=== PATIENT | male | born 1950 | race Caucasian/White ===

== ENCOUNTER 2018-02-13 15:18 | Inpatient (IN) | payer MEDICARE, SELFPAY ==
[2018-02-13] VITALS (13 sets, daily range): BP systolic 122–163; BP diastolic 76–102; PULSE 95–109; RESP 11–25; TEMP -12.3–36.7; O2SAT 95–97; BMI 35.7
--- NOTE | 2018-02-13 15:55 | HP.PCM_ITS ---
Problem List (1) ST elevation myocardial infarction (STEMI) of anterior wall Status: Acute (2) Elevated BP without diagnosis of hypertension Status: Acute (3) Hypertension Status: Suspected Qualifiers: Hypertension type: essential hypertension Qualified Code(s): I10 - Essential (primary) hypertension (4) Alcohol abuse Status: Chronic History of Present Illness Date of Admission: 02/13/18 Chief Complaint: Chest pain, OSH EKG w/ anterior STEMI The patient is a 67 y/o M w/ no PMHx aside Heavier EtOH Use (3-4 beers q HS) secondary likely to not being evaluated per a physician in several years who presents to the [facility] as direct admission to the Cardiac Catheterization lab from [facility] ED on 02/13/18 with history of intermittent sternal chest pressure, discomfort with no associated nausea, emesis, diaphoresis or dyspnea ongoing x ~ 1 week, worse with exertion with noted history of radiation to let side of his chest but not into his extremities or neck with recurrence on day of ED presentation while working outside rated upon OSH ED presentation 5/10 and following initial EMS and ED interventions w/ SL NG, ASA 3/10. Upon OSH ED presentation EKG w/ evidence anterior STEMI. Patient administered heparin 4,000 IV bolus, ASA 324 mg po x 1, brillinta load [address] Ruffin contacted for transfer to [place] and accepted. VS initially BP 178/113, HR 113 , 97% on 2L NC, trop initial 18. Request per Cardiology for initiation of nitroglycerin drip and IV BB administration (10 mg IV labetalol administered). Per repeat discussion w/ OSH ED, awaited transport. Left [facility] per their report 15:40. Following arrival per EMS BP improved, SBP 140 and patient noted chest discomfort rating of 0/10. He notes having family locally but cannot give specifics at this time. Past Medical History Past Medical History (Chronic Problems): Chronic Problems (Last Updated 02/13/18 @ 15:51 by Holli Maurer) Alcohol abuse (Chronic) Hypertension (Chronic) Allergies No Known Allergies Allergy (Verified 02/13/18 15:43) Home Medications: Ambulatory Orders Medication Instructions Recorded NK [NK] 02/13/18 Surgical History: no surgical history Psychiatric History: No pertinent psych hx Lives: Alone Smoking Status: Never smoker Tobacco Use: Non-smoker Alcohol: Heavy - at least 3 beers q HS Drugs: None - *Family History Maternal History Items: Hypertension Paternal History Items: Hypertension Review of Systems Constitutional: Reports: Fatigue. Denies: Chills, Fever, Weight Change HEENT: Denies: Head Aches, Sinus Congestion, Sinus Drainage Cardiovascular: Reports: Chest Pressure, Heaviness. Denies: Chest Pain, Light Headedness, Palpitations Respiratory: Denies: Cough, Shortness of Breath, Shortness of breath at rest, Shortness of breath upon exertion, Sputum production Gastrointestinal: Denies: Abdominal Pain, Nausea, Vomiting Genitourinary: Denies: Dysuria Musculoskeletal: Denies: Back Pain, Joint Pain, Joint Tenderness Skin: Denies: Rash, Wounds Neurological: Denies: Numbness, Tingling, Focal weakness Psychiatric: Denies: Anxiety, Depression, Homicidal Ideations, Suicidal Ideations Hematologic/ Lymphatic: Denies: Easy Bruising, Easy Bleeding VTE Information - Inpt Only VTE Present on Admission: No VTE Mechan Device Prophylaxis: SCD's VTE Pharm Prophylaxis ordered?: No Reason prophylaxis not ordered:: Treatment Not Indicated - Given heparin bolus, will transition to SC regimen once cleared per Cardiology in AM. Patient Problems: Active and Suspected Problems (Last Updated 02/13/18 @ 15:51 by Holli Maurer) ST elevation myocardial infarction (STEMI) of anterior wall (Acute) Elevated BP without diagnosis of hypertension (Acute) Hypertension (Suspected) Subjective: Patient laying on cardiac catheterization bed, currently denies any chest pressure, discomfort. Objective: Physical Examination: General: awake, alert, oriented x 3 and cooperative, seated upright in the EMS transport, transitioned to cardiac catheterization bed, denies any current chest discomfort. Skin: normal color, turgor, no icterus, cyanosis. HEENT: AT/NC, EOMI, PERRLA, MMM, no carotid bruit, difficult to assess JVD given durán present. Lungs: CTA bilaterally, moderate effort, mild decrease BL bases, no rales, ronchi or wheezing. Heart: Mildly tachycardic with regular rhythm; no gallop, rub audible. Abdomen: soft, appears morbidly obese, NTTP, ND, cannot assess HSM well secondary to habitus. Extremities: no cyanosis, clubbing or edema noted. Neurological: patient awake, alert, oriented x 3; cognitive function appears baseline intact; pupils equally reactive to light and accomodation; cranial nerves II-XII grossly normal, moving all extremities, strength appears intact despite acute presentation. Psychiatric: affect appears normal, no acute evidence of depressive or anxiety feelings. Assessment/Plan All Active Problems (Last Updated 02/13/18 @ 15:51 by Holli Maurer) ST elevation myocardial infarction (STEMI) of anterior wall (Acute) Elevated BP without diagnosis of hypertension (Acute) The patient is a 67 y/o M w/ no PMHx aside Heavier EtOH Use secondary likely to not being evaluated per a physician in several years who presents to the [facility] as direct admission to the Cardiac Catheterization lab from [facility] ED on 02/13/18 with history of intermittent sternal chest pressure, discomfort with no associated nausea, emesis, diaphoresis or dyspnea ongoing x ~ 1 week, worse with exertion with noted history of radiation to let side of his chest but not into his extremities or neck with recurrence on day of ED presentation while working outside rated upon OSH ED presentation 12/06. (1) Chest pain secondary to Anterior STEMI: OSH ED presentation EKG w/ evidence anterior STEMI. Patient administered heparin 4,000 IV bolus, ASA 324 mg po x 1, brillinta load [address] Ruffin contacted for transfer to [place] and accepted. VS initially BP 178/113, HR 113, 97% on 2L NC, trop initial 18. Request per Cardiology for initiation of nitroglycerin drip and IV BB administration (10 mg IV labetalol administered). Patient transitioned to the Cardiac Catheterization lab w/ Dr. Ruffin, pending results. Following if appropriate will admit to the ICU, maintain on telemetry on bedrest per protocol , cycle cardiac enzymes, obtain ECHO, obtain AM FLP and initiate on statin therapy, obtain mag level. Will await Dr. Ruffin input for brillinta, BB regimen , possibly KAYLA/ARB and consideration for continuation of NG drip. ASA, morphine. (2) Elevated BP without HTN Dx, HTN Emergency: Likely underlying HTN history, NG started prior to transfer and placed on IV BB also, will defer to Dr. Ruffin for consideration pending repeat VS with intervention with expected addition KAYLA /ARB and BB therapy. (3) EtOH Abuse: Notes routine daily 3 beer/day at least, will obtain mag and phos levels, add MVI, thiamine, folic acid and to be cautious maintain on CIWA protocol. (4) DVT prophylaxis: SCDs, recent heparin bolus, add chemoprophylaxis in AM. Code Visit Inpatient E&M: 04857 Init Hosp L3
--- NOTE | 2018-02-13 16:14 | PCM.HP.STD ---
Problem List (1) ST elevation myocardial infarction (STEMI) of anterior wall Status: Acute (2) Elevated BP without diagnosis of hypertension Status: Acute (3) Hypertension Status: Suspected Qualifiers: Hypertension type: essential hypertension Qualified Code(s): I10 - Essential (primary) hypertension (4) Alcohol abuse Status: Chronic History of Present Illness Date of Admission: 02/13/18 Chief Complaint: Chest pain, OSH EKG w/ anterior STEMI The patient is a 67 y/o M w/ no PMHx aside Heavier EtOH Use (3-4 beers q HS) secondary likely to not being evaluated per a physician in several years who presents to the [facility] as direct admission to the Cardiac Catheterization lab from [facility] ED on 02/13/18 with history of intermittent sternal chest pressure, discomfort with no associated nausea, emesis, diaphoresis or dyspnea ongoing x ~ 1 week, worse with exertion with noted history of radiation to let side of his chest but not into his extremities or neck with recurrence on day of ED presentation while working outside rated upon OSH ED presentation 5/10 and following initial EMS and ED interventions w/ SL NG, ASA 3/10. Upon OSH ED presentation EKG w/ evidence anterior STEMI. Patient administered heparin 4,000 IV bolus, ASA 324 mg po x 1, brillinta load [address] Ruffin contacted for transfer to [place] and accepted. VS initially BP 178/113, HR 113, 97% on 2L NC, trop initial 18. Request per Cardiology for initiation of nitroglycerin drip and IV BB administration (10 mg IV labetalol administered). Per repeat discussion w/ OSH ED, awaited transport. Left [facility] per their report 15:40. Following arrival per EMS BP improved, SBP 140 and patient noted chest discomfort rating of 0/10. He notes having family locally but cannot give specifics at this time. Past Medical History Past Medical History (Chronic Problems): Chronic Problems (Last Updated 02/13/18 @ 15:51 by Holli Maurer) Alcohol abuse (Chronic) Hypertension (Chronic) Allergies No Known Allergies Allergy (Verified 02/13/18 15:43) Home Medications: Ambulatory Orders Medication Instructions Recorded NK [NK] 02/13/18 Surgical History: no surgical history Psychiatric History: No pertinent psych hx Lives: Alone Smoking Status: Never smoker Tobacco Use: Non-smoker Alcohol: Heavy - at least 3 beers q HS Drugs: None - *Family History Maternal History Items: Hypertension Paternal History Items: Hypertension Review of Systems Constitutional: Reports: Fatigue. Denies: Chills, Fever, Weight Change HEENT: Denies: Head Aches, Sinus Congestion, Sinus Drainage Cardiovascular: Reports: Chest Pressure, Heaviness. Denies: Chest Pain, Light Headedness, Palpitations Respiratory: Denies: Cough, Shortness of Breath, Shortness of breath at rest, Shortness of breath upon exertion, Sputum production Gastrointestinal: Denies: Abdominal Pain, Nausea, Vomiting Genitourinary: Denies: Dysuria Musculoskeletal: Denies: Back Pain, Joint Pain, Joint Tenderness Skin: Denies: Rash, Wounds Neurological: Denies: Numbness, Tingling, Focal weakness Psychiatric: Denies: Anxiety, Depression, Homicidal Ideations, Suicidal Ideations Hematologic/ Lymphatic: Denies: Easy Bruising, Easy Bleeding VTE Information - Inpt Only VTE Present on Admission: No VTE Mechan Device Prophylaxis: SCD's VTE Pharm Prophylaxis ordered?: No Reason prophylaxis not ordered:: Treatment Not Indicated - Given heparin bolus, will transition to SC regimen once cleared per Cardiology in AM. Patient Problems: Active and Suspected Problems (Last Updated 02/13/18 @ 15:51 by Holli Maurer) ST elevation myocardial infarction (STEMI) of anterior wall (Acute) Elevated BP without diagnosis of hypertension (Acute) Hypertension (Suspected) Subjective: Patient laying on cardiac catheterization bed, currently denies any chest pressure, discomfort. Objective: Physical Examination: General: awake, alert, oriented x 3 and cooperative, seated upright in the EMS transport, transitioned to cardiac catheterization bed, denies any current chest discomfort. Skin: normal color, turgor, no icterus, cyanosis. HEENT: AT/NC, EOMI, PERRLA, MMM, no carotid bruit, difficult to assess JVD given durán present. Lungs: CTA bilaterally, moderate effort, mild decrease BL bases, no rales, ronchi or wheezing. Heart: Mildly tachycardic with regular rhythm; no gallop, rub audible. Abdomen: soft, appears morbidly obese, NTTP, ND, cannot assess HSM well secondary to habitus. Extremities: no cyanosis, clubbing or edema noted. Neurological: patient awake, alert, oriented x 3; cognitive function appears baseline intact; pupils equally reactive to light and accomodation; cranial nerves II-XII grossly normal, moving all extremities, strength appears intact despite acute presentation. Psychiatric: affect appears normal, no acute evidence of depressive or anxiety feelings. Assessment/Plan All Active Problems (Last Updated 02/13/18 @ 15:51 by Holli Maurer) ST elevation myocardial infarction (STEMI) of anterior wall (Acute) Elevated BP without diagnosis of hypertension (Acute) The patient is a 67 y/o M w/ no PMHx aside Heavier EtOH Use secondary likely to not being evaluated per a physician in several years who presents to the [facility] as direct admission to the Cardiac Catheterization lab from [facility] ED on 02/13/18 with history of intermittent sternal chest pressure, discomfort with no associated nausea, emesis, diaphoresis or dyspnea ongoing x ~ 1 week, worse with exertion with noted history of radiation to let side of his chest but not into his extremities or neck with recurrence on day of ED presentation while working outside rated upon OSH ED presentation 12/06. (1) Chest pain secondary to Anterior STEMI: OSH ED presentation EKG w/ evidence anterior STEMI. Patient administered heparin 4,000 IV bolus, ASA 324 mg po x 1, brillinta load [address] Ruffin contacted for transfer to [place] and accepted. VS initially BP 178/113, HR 113, 97% on 2L NC, trop initial 18. Request per Cardiology for initiation of nitroglycerin drip and IV BB administration (10 mg IV labetalol administered). Patient transitioned to the Cardiac Catheterization lab w/ Dr. Ruffin, pending results. Following if appropriate will admit to the ICU, maintain on telemetry on bedrest per protocol, cycle cardiac enzymes, obtain ECHO, obtain AM FLP and initiate on statin therapy, obtain mag level. Will await Dr. Ruffin input for brillinta, BB regimen, possibly KAYLA/ARB and consideration for continuation of NG drip. ASA, morphine. (2) Elevated BP without HTN Dx, HTN Emergency: Likely underlying HTN history, NG started prior to transfer and placed on IV BB also, will defer to Dr. Ruffin for consideration pending repeat VS with intervention with expected addition KAYLA/ARB and BB therapy. (3) EtOH Abuse: Notes routine daily 3 beer/day at least, will obtain mag and phos levels, add MVI, thiamine, folic acid and to be cautious maintain on CIWA protocol. (4) DVT prophylaxis: SCDs, recent heparin bolus, add chemoprophylaxis in AM. Code Visit Inpatient E&M: 42030 Init Hosp L3
[2018-02-13 17:27] LABS: International Normalized Ratio 1.3; Prothrombin Time (Protime)PT. 16.1 SECONDS (11.7-14.9)
--- NOTE | 2018-02-13 17:33 | CL.I_ITS ---
Patient Name: CLARIBEL CALABRESE Study Date: 02/13/2018 Performing: Regino Ruffin MD Ht: 80 inches 203.2 cm : 1950 Wt: 240 lbs 108.86 kg Age: 67 Gender: male BSA: 2.48 PROCEDURE(S) PERFORMED [id number], MARY AND/OR PTCA, ARTERY OR GRAFT, SINGLE VESSEL CLINICAL PROFILE AND CO-MORBIDITIES Patient presents with STEMI for emergent cardiac cath. Indications: ACS > 24 hrs, Worsening Angina, Suspected CAD Heart Failure: None Stress/Imaging Stress/Image Study Performed: No Angina Classification Anginal Classification w/in 2 Weeks: CCS IV CAD Presentations: STEMI. 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 Successful PTCA/MARY of the of mid LAD with a 2.5 x 38 Promus Synergy, followed immediately upstream w ith a 3.0 x 24 Promus Synergy, post dilated with a 3.0 x 12 NC balloon; 99%-->0%, no dissection. Successful PCI with PTCA to the ostial DIAG with a 2.0 x 12 balloon; 75%-->40%, no dissection. Unsuccessful wire crossing of OM#2, which appears to be a REPAIRER HAIRSPRING with robust L to L collaterals. RECOMMENDATIONS Highly recommend quitting all tobacco products Follow up with primary book packer Risk factor modification ASA Indefinitley Plavix for at least 12 months Routine post interventional care Refer for Outpatient Cardiac Rehab Manual sheath removal per protocol Successful Mynx closure of RFA. Follow up with Dr. Ruffin DESCRIPTION OF PROCEDURE The patient arrived to the procedure lab. The risks and benefits of the procedure as well as a full d escription of our services here and lack of surgical backup were fully explained to the patient and/o r their significant other prior to the catheterization. The Timeout was completed, verifying the noemy ect patient and procedure. The patient's procedural site was prepped and draped in the usual fashion. Local anesthetic was given subcutaneously to right groin region with Lidocaine 2%. Using a modified Seldinger technique, arterial access was obtained via the right femoral artery, a 6Fr sheath was inse rted.. Simultaneous pressures were then recorded. Right Coronary Artery selective angiography was th en performed in multiple views using a 4 Fr. 3DRC catheter. Left Coronary Artery selective angiograph y was performed in multiple views using a 6 Fr. EBU 3.75. Left Ventriculography was performed in ROJO projection using a 4 Fr. Pigtail catheter. LV to AO pullback pressures were then recordedThe images w ere reviewed and options discussed. A decision was then made to proceed with an Intervention, IVUS or other adjunct procedure. ebu 3.75 Guide catheter was inserted and engaged into the LCA. runthrough wire Guide wire was advance d to the LAD. 2.0 x 12 Emerge Balloon catheter was inserted. Balloon catheter was advanced across les ion in the LAD, mid. PTCA balloon inflated at 6 atms for 7 secs. PTCA balloon inflated at 6 atms for 8 secs. PTCA balloon inflated at 6 atms for 5 secs. Angiogram performed post balloon dilatation. PTCA balloon inflated at 6 atms for 7 secs. PTCA balloon inflated at 6 atms for 5 secs. PTCA balloon infl ated at 6 atms for 5 secs. Angiogram performed post balloon dilatation. [employer] [place] Guide wire was inserted as a marisabel wire to the diag Balloon catheter was reinserted Balloon catheter was advanced ac ross lesion in the first diagonal, ostial. PTCA balloon inflated at 6 atms for 8 secs. 2.5 x 38 Syner gy Drug Eluting stent was inserted. Drug Eluting stent was advanced across the lesion in the LAD, mid . Angiogram performed pre stent deployment. Angiogram performed post stent deployment. 3.0 x 20 Syner gy Drug Eluting stent was inserted. Angiogram performed pre stent deployment. 3.0 x 24 Drug Eluting s tent was inserted. Angiogram performed pre stent deployment. Drug Eluting stent was advanced across t he lesion in the LAD, mid. Angiogram performed post stent deployment. 3.0 x 12 NC Emerge Balloon cath eter was inserted. Balloon catheter was advanced across lesion in the LAD, mid. Run through Guide wir e was repositioned to the 1st Diagonal, BMW placed in the mid LAD 2.0 x 12 Emerge Balloon catheter wa s reinserted Balloon catheter was advanced across lesion in the first diagonal, ostial. PTCA balloon inflated at 6 atms for 36 secs. Angiogram performed post balloon dilatation. The arterial sheath wa s pulled and a Mynx closure device was deployed for hemostasis CORONARY ANGIOGRAPHY DOMINANCE: Right Dominant LEFT HEART ASSESSMENT Left Ventricular Ejection Fraction: by LV Gram 45-50 % Depressed Left Ventricular systolic function Elevated Left Ventricular End Diastolic Pressure Anterior Hypokinesis - Moderate LEFT MAIN: Angiographically normal LEFT ANTERIOR DECENDING ARTERY: MID LAD: 99 % Stenosis DIAGONAL 1: Ostial - 75 % Stenosis CIRCUMFLEX ARTERY: OM 1: Proximal - Mild luminal irregularities less than 30% OM 2: Proximal - is occluded RIGHT CORONARY ARTERY: PROX RCA: Mild luminal irregularities less than 30% RT PDA: Proximal - Mild luminal irregularities less than 30% COLLATERAL FLOW: Collateral flow from Right to Left Collateral flow from Left to Left INTERVENTION INFORMATION LESION SITE: LAD (Mid) Lesion Complexity: High/C, lesion at bifurcation: Yes, thrombus present: Yes, lesion length: 62 mm, c ulprit lesion: Yes Pre Stenosis: 99 % Pre intervention ZACHARY flow: 2 PROCEDURE: Drug Eluting Stent with pre and post dilatation Post Stenosis: 0 % Post intervention ZACHARY flow: 3 Lesion Devices: Terumo .014 Runthrough Extra Floppy 180cm straight [employer] EMERGE MR 2.00x12 BALLOON [employer] Synergy MR MARY 2.50x38 [employer] Synergy MR MARY 3.00x24 [employer] NC EMERGE MR 3.00x12 BALLOON LESION SITE: 1st Diagonal (Ostial) Lesion Complexity: Non-High/Non-C, lesion at bifurcation: Yes, lesion length: 8 mm, culprit lesion: N o Pre Stenosis: 75 % Pre intervention ZACHARY flow: 3 PROCEDURE: Balloon Angioplasty Post Stenosis: 40 % Post intervention ZACHARY flow: 3 Lesion Devices: [employer] EMERGE MR 2.00x12 BALLOON [place] .014 [employer] [place] Straight 190cm COMPLICATIONS No Complications PROCEDURE MEDICATIONS Oxygen: 2 L/min via nasal cannula Heparin 6000 unit(s) IV 02/13/2018 16:17:42 Nitro 200 mcg IC 02/13/2018 16:24:24 Nitro 200 mcg IC 02/13/2018 16:24:24 SUMMARY OF HEMODYNAMIC DATA Time AIR REST ECG 16:06:31 AO 141/89 (115) SA 16:15:21 LV 161/-16, 18 17:02:37 LV 158/-15, 18 17:02:44 LVp 163/-16, 19 17:02:50 AO 141/80 (105) 17:02:55 Signed By Regino Ruffin MD On 02/13/2018 17:32:25 Regino Ruffin MD
[2018-02-13 17:38] LABS: Anion Gap 9 (5-15); BUN 8 mg/dL (7-18); BUN/Creat Ratio 12.4 RATIO (10-20); Calcium,Total 7.8 mg/dL (8.5-10.1); Chloride 97 mmol/L (98-107); Creatinine, Serum 0.65 mg/dL (0.70-1.30); EST Glomerular Filtration Rate 131 mL/min (>60); Est Glom Filt Rate - Afr Amer 159 mL/min (>60); Glucose 157 mg/dL (74-106); Magnesium 1.8 mg/dL (1.6-2.6); Potassium 3.6 mmol/L (3.5-5.1); Sodium Level 129 mmol/L (136-145)
[2018-02-13 17:40] LABS: ACT Activated Clotting Time 180 sec (74-137)
[2018-02-13 17:40] LABS: ACT Activated Clotting Time 136 sec (74-137)
--- NOTE | 2018-02-13 17:43 | EKG12_ITS ---
Test Reason : POST STEMI Blood Pressure : / mmHG Vent. Rate : 096 BPM Atrial Rate : 096 BPM P-R Int : 166 ms QRS Dur : 084 ms QT Int : 378 ms P-R-T Axes : 048 038 -22 degrees QTc Int : 477 ms Normal sinus rhythm ST & T wave abnormality, consider inferior ischemia ST & T wave abnormality, consider anterolateral ischemia Prolonged QT Abnormal ECG No previous ECGs available Confirmed by JUAN LEE ([id number]), movie editor ARCHIE OWEN ([id number]) on 02/19/2018 2:13:12 PM Referred By: ROSA Confirmed By:JUAN LEE
[2018-02-13 17:53] LABS: Partial Thromboplast Time 150.6 Seconds (24.1-36.2)
[2018-02-13 18:16] LABS: Phosphorus 2.8 mg/dL (2.5-4.9)
[2018-02-13 19:55] LABS: M R Staph aureus DNA By PCR Negative (Negative); Probe Check PASS; Specimen Processing Control PASS
[2018-02-13] MEDS: TICAGRELOR 90 MG TABLET PO (21:14)
[2018-02-13] MEDS: 0.9% Normal Saline 1,000 ML 150 ML IV (21:18)
[2018-02-13] MEDS: Nitroglycerin Infusion 250 ML 3 MG IV (21:22)
--- NOTE | 2018-02-13 21:29 | NURSING ---
Extensive counseling on medications by this RN. Pt refusing to take all medications other than brilinta.
[2018-02-13 21:30] LABS: Bedside Glucose 217 mg/dL (70-110)
[2018-02-14] VITALS (26 sets, daily range): BP systolic 100–149; BP diastolic 60–89; PULSE 84–111; RESP 12–28; TEMP 36.6–37.1; O2SAT 92–98
[2018-02-14] MEDS: 0.9% Normal Saline 1,000 ML 100 ML IV (00:55)
[2018-02-14 04:21] LABS: Hematocrit 40.8 % (40-54); Hemoglobin 14.1 g/dl (13.0-16.5); Mean Corp Hgb Conc 34.6 g/gl (32-36); Mean Corpuscular Hgb 31.6 pg (27.0-32.0); Mean Corpuscular Volume 91.5 fL (80-94); Mean Platelet Vol. 9.1 fl (6.2-12.0); Platelet Count 240 K/mm3 (150-450); RBC Distribution Width CV 12.4 % (11.6-14.6); RBC Distribution Width SD 40.8 fl (35.1-43.9); Red Blood Count 4.46 M/mm3 (4.6-6.2); Scan Indicated on CBC? Y/N NO; White Blood Count 11.4 K/mm3 (4.4-11.0)
[2018-02-14 04:40] LABS: Anion Gap 9 (5-15); BUN 8 mg/dL (7-18); BUN/Creat Ratio 10.1 RATIO (10-20); Chloride 101 mmol/L (98-107); Cholesterol 160 mg/dL (200); Creatinine, Serum 0.79 mg/dL (0.70-1.30); EST Glomerular Filtration Rate 104 mL/min (>60); Est Glom Filt Rate - Afr Amer 126 mL/min (>60); Estimated Creatinine Clearance 75.03 ml/min; Glucose 167 mg/dL (74-106); High Density Lipoprotein 37 mg/dL; Potassium 3.5 mmol/L (3.5-5.1); Sodium Level 136 mmol/L (136-145); Triglycerides 112 mg/dL; Very Low Density Lipoprotein 22 mg/dL (5-40)
--- NOTE | 2018-02-14 05:55 | ECHOD_ITS ---
Reason For Study: Chest pain Procedure This was a 2D Doppler, Color Flow transthoracic echocardiogram. Exam performed portable in ICU/CCU. Left Ventricle Moderate concentric left ventricular hypertrophy. The estimated ejection fraction is 45 %. Stage 1 diastolic dysfunction. Mid-Anterior : Severely Hypokinetic. Mid-anteroseptal : Severely Hypokinetic. Right Ventricle Normal size and thickness. Normal systolic function. Atria Normal left atrium. Normal right atrium. Normal atrial septum. Mitral Valve The mitral valve is structurally normal. No prolapse or stenosis seen. Tricuspid Valve Normal tricuspid valve. Unable to estimate RV systolic pressure due to inadequate jet, pulmonary artery pressure probably normal. Aortic Valve Trisinus/trileaflet aortic valve. Mild focal aortic valve thickening. Pulmonic Valve Normal pulmonic valve. Great Vessels Normal aortic root. Normal arch. Normal inferior vena cava. Inferior vena cava collapse with sniff. Pericardium/Pleural No pericardial effusion. MMode/2D Measurements & Calculations LVIDd: 4.0 cm IVSd: 1.6 cm Ao root diam: 3.3 cm LVIDs: 2.2 cm LVPWd: 1.5 cm LA dimension: 3.6 cm FS: 44.8 % LAV(MOD-bp): 57.1 ml LA A4 area: 17.7 cm2 RA A4 area: 11.3 cm2 LAV(MOD-bp) Indexed: 25.0 ml/m2 LAV(MOD-sp2): 53.8 ml LAV(MOD-sp4): 56.0 ml Doppler Measurements & Calculations MV E max mahesh: 73.6 cm/sec Lat Peak E' Mahesh: 7.1 cm/sec Med Peak E' Mahesh: 6.5 cm/sec MV A max mahesh: 106.7 cm/sec E/E' lat: 10.4 E/E' med: 11.3 MV E/A: 0.69 Ao V2 max: 159.1 cm/sec LV V1 max: 120.2 cm/sec PA V2 max: 124.0 cm/sec Ao max P.1 mmHg LV V1 max P.8 mmHg Interpretation Summary Moderate concentric left ventricular hypertrophy. The estimated ejection fraction is 45 %. Stage 1 diastolic dysfunction. Mid-Anterior : Severely Hypokinetic. Mid-anteroseptal : Severely Hypokinetic. Unable to estimate RV systolic pressure due to inadequate jet, pulmonary artery pressure probably normal. There is no comparison study available. Ordering Physician: Holli Maurer Performed By: Rosa M Piper RDCS
--- NOTE | 2018-02-14 06:53 | PN_ITS ---
Patient Problems: Active and Suspected Problems (Last Updated 02/13/18 @ 15:51 by Holli Maurer) ST elevation myocardial infarction (STEMI) of anterior wall (Acute) Elevated BP without diagnosis of hypertension (Acute) Hypertension (Suspected) Subjective: Patient with no acute events overnight and since intervention per report by nurse and patient; however, patient this morning very reticent to take oral medications and therefore had continued on the nitroglycerin drip to achieve appropriate blood pressure control. Following extremely lengthy discussions throughout the day patient eventually started on his oral medications and was transitioned off the nitroglycerin drip. Reviewed all labs which included those consistent with diabetes mellitus type 2 and discussed plan of care with patient and encouraged consideration of oral medication start upon discharge. Patient denies any further chest discomfort since presentation and states as though he is feeling well and eager for discharge to home. Patient denies fevers, chills, nausea, emesis, abdominal pain, chest pain or dyspnea. Objective: Physical Examination: General: awake, alert, oriented x 3 and cooperative, seated upright in ICU bedside chair, NAD. Skin: normal color, turgor, no icterus, cyanosis. HEENT: AT/NC, EOMI, PERRLA, MMM. Lungs: CTA bilaterally, moderate effort, mild decrease BL bases, no rales, ronchi or wheezing. Heart: Regular rate with regular rhythm; no gallop, rub audible. Abdomen: soft, obese, NTTP, ND, normal BS. Extremities: no cyanosis, clubbing or edema. Neurological: patient awake, alert, oriented x 3; cognitive function appears baseline intact; pupils equally reactive to light and accomodation; cranial nerves II-XII grossly normal, moving all extremities, strength intact. Psychiatric: affect appears normal, no acute evidence of depressive or anxiety feelings. Vitals/I&O's: Vital Signs Temp Pulse Resp BP Pulse Ox 98.8 F 101 H 23 H 131/73 H 95 02/14/18 05:00 02/14/18 06:00 02/14/18 06:00 02/14/18 06:00 02/14/18 06:00 Oxygen Delivery Method Room Air Weight: 251 lb 5.231 oz Body Mass Index (BMI) 35.7 Intake and Output for Last 24 Hours 02/12/18 02/13/18 02/14/18 23:59 23:59 23:59 Intake Total 2377.9 / 2377.9 Output Total 750 / 750 1000 / 1000 Balance -750 / -750 1377.9 / 1377.9 Laboratory Results 02/13/18 16:15: Activated Clotting Time 136 02/13/18 17:04: Activated Clotting Time 180 H 02/13/18 17:09: Sodium 129 L, Potassium 3.6, Chloride 97 L, Carbon Dioxide 23.0 , Anion Gap 9, BUN 8, Creatinine 0.65 L, Est GFR (MDRD) Af Amer 159, Est GFR ( MDRD) Non-Af 131, BUN/Creatinine Ratio 12.4, Glucose 157 H, Calcium 7.8 L, Magnesium 1.8 02/13/18 17:09: PT 16.1 H, INR 1.3, APTT 150.6 H* 02/13/18 17:09: Phosphorus 2.8 02/13/18 17:09: Troponin I 63.200 H* 02/13/18 18:00: MRSA (PCR) Negative 02/13/18 20:00: Troponin I 149.000 H* 02/13/18 21:25: POC Glucose 217 H 02/13/18 23:00: Troponin I 82.800 H* 02/14/18 04:10: WBC 11.4 H, RBC 4.46 L, Hgb 14.1, Hct 40.8, MCV 91.5, MCH 31.6, MCHC 34.6, RDW 12.4, RDW Differential 40.8, Plt Count 240, MPV 9.1 02/14/18 04:10: Sodium 136, Potassium 3.5, Chloride 101, Carbon Dioxide 26.0, Anion Gap 9, BUN 8, Creatinine 0.79, Estim Creat Clear Calc 75.03, Est GFR (MDRD ) Af Amer 126, Est GFR (MDRD) Non-Af 104, BUN/Creatinine Ratio 10.1, Glucose 167 H, Calcium 8.0 L, Triglycerides 112, Cholesterol 160, LDL Cholesterol 101, VLDL Cholesterol 22, HDL Cholesterol 37 L Current Medications Acetaminophen (Tylenol) 650 mg PO Q6H PRN PRN PRN Reason: Mild Pain (0-2/10) Hydrocodone Bitart/Acetaminophen ([place] 5mg-325mg) 1 - 2 tablet PO Q6H PRN PRN PRN Reason: Moderate-severe pain Al Hydroxide/Mg Hydroxide (Mylanta Ii) 30 ml PO Q6H PRN PRN PRN Reason: Gastric burning Aspirin (Aspirin, Baby) 81 mg PO DAILY@0800 [facility] Atorvastatin Calcium (Lipitor) 80 mg PO QHS [facility] Last Admin: 02/13/18 21:14 Dose: Not Given Atropine Sulfate () 0.5 mg IV UD PRN PRN Reason: HR <50 bpm Carvedilol (Coreg) 3.125 mg PO BID [facility] Last Admin: 02/13/18 21:20 Dose: Not Given Famotidine (Pepcid) 20 mg PO BID [facility] Last Admin: 02/13/18 21:14 Dose: Not Given Folic Acid (Folic Acid) 1 mg PO DAILY@0800 [facility] Stop: 02/15/18 08:01 Last Admin: 02/13/18 21:17 Dose: Not Given Hydralazine HCl (Apresoline Iv) 10 mg IV Q4H PRN PRN PRN Reason: SBP > 160 Sodium Chloride () 1,000 mls @ 100 mls/hr IV .Q10H [facility] Last Admin: 02/14/18 00:55 Dose: 100 mls/hr Nitroglycerin/Dextrose () 250 mls @ 3 mls/hr IV .[id number] [facility] PRN Reason: 5 MCG/MIN Last Admin: 02/13/18 21:22 Dose: 3 mls/hr Sodium Chloride () 250 mls @ 15 mls/hr IV .[id number] PRN PRN Reason: SALINE FLUSH Sodium Chloride () 250 mls @ 15 mls/hr IV .[id number] PRN PRN Reason: SALINE FLUSH Lisinopril (Zestril) 5 mg PO DAILY [facility] Lorazepam (Ativan) 2 mg PO Q2H PRN PRN; Protocol PRN Reason: CIWA score > 8 but <15 Lorazepam (Ativan) 2 mg PO UD PRN; Protocol PRN Reason: CIWA score >/=15. Lorazepam (Ativan) 2 mg IV Q2H PRN PRN; Protocol PRN Reason: CIWA score > 8 but <15 Lorazepam (Ativan) 2 mg IV UD PRN; Protocol PRN Reason: CIWA score >/=15. Lorazepam (Ativan) 1 mg PO Q6H PRN PRN PRN Reason: BACK SPASMS/ANXIETY Magnesium Hydroxide (Milk Of Magnesia) 30 ml PO DAILY PRN PRN PRN Reason: Constipation Morphine Sulfate () 1 - 2 mg IV Q4H PRN PRN PRN Reason: PAIN Multivitamins/Minerals (Multivitamin With Minerals) 1 tablet PO DAILY[facility] BRANSON Last Admin: 02/13/18 21:17 Dose: Not Given Ondansetron HCl (Zofran) 4 mg IV Q8H PRN PRN PRN Reason: NAUSEA Promethazine HCl (Phenergan) 12.5 mg IV Q6H PRN PRN PRN Reason: NAUSEA/VOMITING Sodium Chloride () 500 ml IV BOLUS PRN PRN Reason: VASO-VAGAL PROTOCOL Sodium Chloride () 5 - 30 ml IV UD PRN PRN Reason: SALINE FLUSH Thiamine HCl (Vitamin B1) 100 mg PO BIDCOX BRANSON Stop: 02/16/18 08:01 Last Admin: 02/13/18 21:17 Dose: Not Given Ticagrelor (Brilinta) 90 mg PO BID [facility] Last Admin: 02/13/18 21:14 Dose: 90 mg Medical Necessity - Tobacco Use Smoking Status: Former smoker Tobacco Use: Non-smoker Assessment/Plan All Active Problems (Last Updated 02/13/18 @ 15:51 by Holli Maurer) ST elevation myocardial infarction (STEMI) of anterior wall (Acute) Elevated BP without diagnosis of hypertension (Acute) The patient is a 67 y/o M w/ no PMHx aside Heavier EtOH Use secondary likely to not being evaluated per a physician in several years who presents to the [facility] as direct admission to the Cardiac Catheterization lab from [facility] ED on 02/13/18 with history of intermittent sternal chest pressure, discomfort with no associated nausea, emesis, diaphoresis or dyspnea ongoing x ~ 1 week, worse with exertion with noted history of radiation to let side of his chest but not into his extremities or neck with recurrence on day of ED presentation while working outside rated upon OSH ED presentation 12/06. (1) Chest pain secondary to Anterior STEMI w/ REduced EF, Diastolic Dysfunction : OSH ED presentation EKG w/ evidence anterior STEMI. Patient administered heparin 4,000 IV bolus, ASA 324 mg po x 1, brillinta load [address] Ruffin contacted for transfer to [place] and accepted. VS initially BP 178/113, HR 113, 97% on 2L NC, trop initial 18. Request per Cardiology for initiation of nitroglycerin drip and IV BB administration (10 mg IV labetalol administered). Patient transitioned to the Cardiac Catheterization lab w/ Dr. 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 Admitted following to the ICU, maintained on telemetry, serial enzyme trend with 18 (OSH ED)-->63.2 -->149-->82.8, serial EKG as needed, NG drip eventually discontinued once patient was willing to take the new oral blood pressure regimen, ECHO with moderate concentric LVH, EF 45%, stage I diastolic dysfunction, mid-anterior severely hypokinetic, mid-anteroseptal severely hypokinetic, unable to estimate RVSP secondary to inadequate jet but suspect normal, AM FLP w/ TG 112, TChol 160 , LDL 101, VLDL 22, HDL 37. Initiated and maintained on asa, brillinta, high dose statin, coreg, lisinopril. ASA, NG, morphine. (2) Elevated BP without HTN Dx, HTN Emergency: Likely underlying HTN history, NG started prior to transfer and placed on IV BB also, improved following interventions but declined initially oral medications therefore NG continued until this AM with eventual willingness to transition to coreg, lisinopril, PRN hydralazine. (3) EtOH Abuse: Notes routine daily 3 beer/day at least, will obtain mag and phos levels, add MVI, thiamine, folic acid and to be cautious maintain on CIWA protocol. (4) New Diagnosis Diabetes Mellitus type II w/ Hyperglycemia: Admission glucose levels remain elevated, HgbA1c 8%, maintained on ADA, ISS, nutrition consulted for education and teaching. Discussed new diagnosis and diet at length including meal options, need for cautious with wounds/cuts as well as several other lifestyle change improvements to undertake. Discussed oral medication with planned metformin upon discharge once timeline appropriate given recent contrast; however, patient reticent to take any more medication. Willing to take rx and make lifestyle/diet changes but likely not take any regimen. (5) Obesity: Weight loss and lifestyle changes encouraged, nutrition consulted for education and teaching, cardiac rehabilitation consultation also performed. (6) DVT prophylaxis: SCDs, lovenox. PROLONGED CARE TIME: Patient initially extremely reticent to take any oral medications. Discussions undertaken in the AM and through the day with ongoing education regarding new Dx CAD, HTN, DM II. Discussed with patient and CM/SW medication needs with discussion with [facility] as [facility]. These discussions and ongoing interventions w/ CM[facility]SW with [facility] required 75 addition minutes above the initial daily progress timeline. Code Visit Inpatient E&M: 82463 Subs Hosp L3 Procedures: 60572 Prolonged InPt Service; first hour
[2018-02-14 07:01] LABS: Bedside Glucose 154 mg/dL (70-110)
--- NOTE | 2018-02-14 08:51 | PN.CARD_ITS ---
Subjectve: Patient doing well this morning, no further angina. Telemetry showed normal sinus rhythm, no ventricular arrhythmias. EKG shows normal sinus rhythm with resolving anterior ST segment elevation. Peak troponin thus far is 82. Right groin is clean/dry/intact without evidence of thrills, hematoma or bruit. Hemoglobin and creatinine have remained within nominal limits. Patient refused to take his medications this morning except for his aspirin and Brilinta. Objective: Vital Signs Temp Pulse Resp BP Pulse Ox 98.8 F 109 H 21 H 123/82 H 95 02/14/18 05:00 02/14/18 08:00 02/14/18 08:00 02/14/18 07:33 02/14/18 08:00 Oxygen Delivery Method Room Air Weight: 251 lb 5.231 oz Body Mass Index (BMI) 35.7 Intake and Output for Last 24 Hours 02/12/18 02/13/18 02/14/18 23:59 23:59 23:59 Intake Total 2377.9 / 2377.9 Output Total 750 / 750 1000 / 1000 Balance -750 / -750 1377.9 / 1377.9 General: Awake, Alert, Oriented x 3 HEENT: PERRL, EOMI, Sclera Non Icteric Neck: Supple, Good ROM, No Lymph Node Enlargement Lungs: Clear to auscultation Cardiovascular: Regular Rhythm, Normal S1, Normal S2, No Murmurs, No Rubs, No Gallops Vascular: No Carotid Bruits, Normal Femoral Pulses, Normal Radial Pulses, Normal Dorsalis Pedal Pulse, Normal Posterior Tibial Pulses Abdomen: Bowel Sounds Present, Soft, Non Tender, No HSM, No Organomegaly Extremities: No Cyanosis, No Clubbing, No edema Neurological: No Focal Motor or Sensory Deficit 02/13/18 17:09: Sodium 129 L, Potassium 3.6, Chloride 97 L, Carbon Dioxide 23.0 , Anion Gap 9, BUN 8, Creatinine 0.65 L, Est GFR (MDRD) Af Amer 159, Est GFR ( MDRD) Non-Af 131, BUN/Creatinine Ratio 12.4, Glucose 157 H, Calcium 7.8 L, Magnesium 1.8 02/13/18 17:09: PT 16.1 H, INR 1.3, APTT 150.6 H* 02/13/18 17:09: Phosphorus 2.8 02/13/18 17:09: Troponin I 63.200 H* 02/13/18 20:00: Troponin I 149.000 H* 02/13/18 23:00: Troponin I 82.800 H* 02/14/18 04:10: WBC 11.4 H, RBC 4.46 L, Hgb 14.1, Hct 40.8, MCV 91.5, MCH 31.6, MCHC 34.6, RDW 12.4, RDW Differential 40.8, Plt Count 240, MPV 9.1 02/14/18 04:10: Sodium 136, Potassium 3.5, Chloride 101, Carbon Dioxide 26.0, Anion Gap 9, BUN 8, Creatinine 0.79, Est GFR (MDRD) Af Amer 126, Est GFR (MDRD) Non-Af 104, BUN/Creatinine Ratio 10.1, Glucose 167 H, Calcium 8.0 L, Triglycerides 112, Cholesterol 160, LDL Cholesterol 101, VLDL Cholesterol 22, HDL Cholesterol 37 L 02/14/18 04:10: Hemoglobin A1c 8.0 H Rhythm: EKG: ECHO: Pending Stress Test: Cardiac Cath: PCI: CT Surgery: Holter monitor: EPS: PPM: CXR: Chest CT Scan: Medical Necessity - Tobacco Use Smoking Status: Former smoker Tobacco Use: Non-smoker Assessment/Plan 1. Coronary artery disease: The patient presented yesterday with acute anterior wall ST elevation myocardial infarction requiring emergent catheterization and 2 drug-eluting stents to the LAD as well as balloon angioplasty to the ostium of the diagonal branch. Patient has occluded obtuse marginal #2 with adequate left to left collaterals. No additional angioplasty or evaluation is needed at this time. Recommend the patient continue baby aspirin, Brilinta, and that we wean his nitroglycerin drip off to facilitate discharge home in the next 24-48 hours. I had a long and thorough discussion with the patient regarding his antihypertensive and what appear to be new diabetic medications as he is a newly diagnosed diabetic. Although the patient is reluctant to proceed with medications I explained to him the enormous benefits and minimal risk that they forward to patients with cardiovascular disease. The patient appears to have reluctantly agreed to take his medications. The patient will undergo an echocardiogram today to assess his LV function. We will repeat this in 4 months time after cardiac rehab is been completed. 2. Diabetes: We will defer to hospitalist assistance. Many thanks to Dr. Holli Maurer for her assistance both yesterday and with the patient's care in the hospital. 3. Hyperlipidemia: His LDL is 101 his HDL is 37. Continue Lipitor therapy. Will repeat lipid profile in 6 weeks time. 4. Thank you very much for the opportunity to participate in the cardiac care of your patient. Code Visit Inpatient E&M: 52786 Subs Hosp L2
[2018-02-14] MEDS: Aspirin 81 MG TAB.CHEW PO (09:16)
[2018-02-14] MEDS: TICAGRELOR 90 MG TABLET PO ×2 (09:16→21:06)
[2018-02-14] MEDS: Carvedilol 3.125 MG TABLET PO ×2 (09:16→21:06)
[2018-02-14] MEDS: Lisinopril 5 MG Tablet PO (09:17)
--- NOTE | 2018-02-14 11:08 | CRPHASE1 ---
Patient Data/Charges Phase II Referral:: [facility] Start Phase II:: FOLLOWING CARDIOLOGY OFFICE VISIT Risk Factors/Lifestyle Smoking Status: Former smoker Hx Hypertension: Yes Hx Diabetes Mellitus Type 1: No Hx Metabolic Disorders: Yes Hx Dyslipidemia: Yes Hx Obesity: Yes Height: 5 ft 10 in - BMI 36.1 Stress: Home/Family ETOH: No Substance Abuse: No Risk Factor for Sedentary Lifestyle: Moderate Risk Family History: Heart Disease Laboratory Values: Cardiac Rehab Phase I Labs Hemoglobin A1c 8.0 % (4.2-6.3) H 02/14/18 04:10 Triglycerides 112 mg/dL (-199) 02/14/18 04:10 Cholesterol 160 mg/dL (200) 02/14/18 04:10 LDL Cholesterol 101 mg/dL (0-130) 02/14/18 04:10 HDL Cholesterol 37 mg/dL (40-) L 02/14/18 04:10 Phase I Education Given On:: [place], Nutrition, Antiplatelet medication Issues Affecting Care:: None Knowledge of Condition:: Yes Learning Preferences: Verbal, Written Hospital Course Presenting Symptoms:: STEMI Medical/Surgical History [place]:: Yes - STEMI CAD:: No COPD:: No Diabetes:: No Hypertension:: Yes Dyslipidemia:: Yes Discharge/Home/Social Eval Discharge Disposition: Home
--- NOTE | 2018-02-14 11:11 | CRPHASE1_ITS ---
Patient Data/Charges Phase II Referral:: [facility] Start Phase II:: FOLLOWING CARDIOLOGY OFFICE VISIT Risk Factors/Lifestyle Smoking Status: Former smoker Hx Hypertension: Yes Hx Diabetes Mellitus Type 1: No Hx Metabolic Disorders: Yes Hx Dyslipidemia: Yes Hx Obesity: Yes Height: 5 ft 10 in - BMI 36.1 Stress: Home/Family ETOH: No Substance Abuse: No Risk Factor for Sedentary Lifestyle: Moderate Risk Family History: Heart Disease Laboratory Values: Cardiac Rehab Phase I Labs Hemoglobin A1c 8.0 % (4.2-6.3) H 02/14/18 04:10 Triglycerides 112 mg/dL (-199) 02/14/18 04:10 Cholesterol 160 mg/dL (200) 02/14/18 04:10 LDL Cholesterol 101 mg/dL (0-130) 02/14/18 04:10 HDL Cholesterol 37 mg/dL (40-) L 02/14/18 04:10 Phase I Education Given On:: [place], Nutrition, Antiplatelet medication Issues Affecting Care:: None Knowledge of Condition:: Yes Learning Preferences: Verbal, Written Hospital Course Presenting Symptoms:: STEMI Medical/Surgical History [place]:: Yes - STEMI CAD:: No COPD:: No Diabetes:: No Hypertension:: Yes Dyslipidemia:: Yes Discharge/Home/Social Eval Discharge Disposition: Home
--- NOTE | 2018-02-14 11:13 | CRPH1.INST_ITS ---
General Education CAD and cardiac anatomy and function:: Patient communicates acknowledgment Explanation of diagnoses and procedures:: Patient communicates acknowledgment Sign/Symptoms of [place]:: Patient communicates acknowledgment Antiplatelet therapy: Patient communicates acknowledgment Proper use of NTG-SL: Patient communicates acknowledgment Emergency procedures and activation of EMS: Patient communicates acknowledgment Compliance of all prescribed medications: Patient communicates acknowledgment Smoking Recommendations Include:: Previous smoker; encourage continued cessation Nicotine/Smoking Response Code:: Patient communicates acknowledgment Dyslipidemia Patient Dyslipidemia Risk Factors Are:: HDL, LDL Recommendations Include:: Lipid profile provided, Reviewed NCEP/ATP guidelines, Therapeutic Lifestyle Change dietary guidelines Dyslipidemia Response Code:: Patient communicates acknowledgment Overweight/Obesity Patient Overweight/Obesity Risk Factors Are:: Obesity - > or = 30 Recommendations Include:: Weight loss of 5-10%, Reduced calorie diet, Exercise 5 -7 times/week Overweight/Obesity:: Patient communicates acknowledgment Hypertension Recommendations Include:: Maintain BP <130/85, DASH dietary guidelines, Decrease /maintain normal body weight, Moderation of ETOH Hypertension:: Patient communicates acknowledgment Heart Disease Heart Disease Response Code:: Patient communicates acknowledgment Diabetes Patient Diabetes Risk Factors Are:: No documented hx of diabetes Metabolic Syndrome Patient Metabolic Syndrome Risk Factors Are [3 of 5]:: Waist circumference > 35 [female] or 40 [male], Hypertension, Low HDL <40 [male] or < 50 [female] Recommendations Include:: Reinforce compliance to risk factor modifications, Encouraged follow-up with Primary Care Physician Metabolic Syndrome Response Code:: Patient communicates acknowledgment Sedentary Patient Sedentary Risk Factors Are:: Lack of regular exercise Recommendations Include:: Aerobic exercise 5-7 times/week for 20-30 minutes continuously, Benefits of regular exercise, Discussed home walking program, Monitored Outpatient Cardiac Rehab Sedentary Response Code:: Patient communicates acknowledgment Stress Recommendations Include:: Identification of stressors, and assessment of coping skills, Stress management techniques Stress Response Code:: Patient communicates acknowledgment
[2018-02-14 11:30] LABS: Bedside Glucose 224 mg/dL (70-110)
--- NOTE | 2018-02-14 12:05 | CASEMGMT ---
See ALYSIA PEDROZA Assess Link: ALYSIA PEDROZA Face to Face with patient for initial transition planning/care coordination assessment. ALYSIA PEDROZA introduced self and role at [facility]. Patient sitting in chair, alert and oriented. Patient willing to participate in assessment and is able to answer all questions appropriately. Care providers and demographics verified. Pt reports he has never been on prescription medications. ALYSIA PEDROZA to follow for arranging pt to get prescriptions through [facility] & Follow up appt upon discharge. Pt wishes to discharge home, denies need for home health at this time. CM to follow for discharge planning needs that may arise. Disposition Plan: Return home. Nicolasa NOLAND RN CM
--- NOTE | 2018-02-14 14:26 | PCM.PN.HOSP ---
Patient Problems: Active and Suspected Problems (Last Updated 02/13/18 @ 15:51 by Holli Maurer) ST elevation myocardial infarction (STEMI) of anterior wall (Acute) Elevated BP without diagnosis of hypertension (Acute) Hypertension (Suspected) Subjective: Patient with no acute events overnight and since intervention per report by nurse and patient; however, patient this morning very reticent to take oral medications and therefore had continued on the nitroglycerin drip to achieve appropriate blood pressure control. Following extremely lengthy discussions throughout the day patient eventually started on his oral medications and was transitioned off the nitroglycerin drip. Reviewed all labs which included those consistent with diabetes mellitus type 2 and discussed plan of care with patient and encouraged consideration of oral medication start upon discharge. Patient denies any further chest discomfort since presentation and states as though he is feeling well and eager for discharge to home. Patient denies fevers, chills, nausea, emesis, abdominal pain, chest pain or dyspnea. Objective: Physical Examination: General: awake, alert, oriented x 3 and cooperative, seated upright in ICU bedside chair, NAD. Skin: normal color, turgor, no icterus, cyanosis. HEENT: AT/NC, EOMI, PERRLA, MMM. Lungs: CTA bilaterally, moderate effort, mild decrease BL bases, no rales, ronchi or wheezing. Heart: Regular rate with regular rhythm; no gallop, rub audible. Abdomen: soft, obese, NTTP, ND, normal BS. Extremities: no cyanosis, clubbing or edema. Neurological: patient awake, alert, oriented x 3; cognitive function appears baseline intact; pupils equally reactive to light and accomodation; cranial nerves II-XII grossly normal, moving all extremities, strength intact. Psychiatric: affect appears normal, no acute evidence of depressive or anxiety feelings. Vitals/I&O's: Vital Signs Temp Pulse Resp BP Pulse Ox 98.8 F 101 H 23 H 131/73 H 95 02/14/18 05:00 02/14/18 06:00 02/14/18 06:00 02/14/18 06:00 02/14/18 06:00 Oxygen Delivery Method Room Air Weight: 251 lb 5.231 oz Body Mass Index (BMI) 35.7 Intake and Output for Last 24 Hours 02/12/18 02/13/18 02/14/18 23:59 23:59 23:59 Intake Total 2377.9 / 2377.9 Output Total 750 / 750 1000 / 1000 Balance -750 / -750 1377.9 / 1377.9 Laboratory Results 02/13/18 16:15: Activated Clotting Time 136 02/13/18 17:04: Activated Clotting Time 180 H 02/13/18 17:09: Sodium 129 L, Potassium 3.6, Chloride 97 L, Carbon Dioxide 23.0, Anion Gap 9, BUN 8, Creatinine 0.65 L, Est GFR (MDRD) Af Amer 159, Est GFR (MDRD) Non-Af 131, BUN/Creatinine Ratio 12.4, Glucose 157 H, Calcium 7.8 L, Magnesium 1.8 02/13/18 17:09: PT 16.1 H, INR 1.3, APTT 150.6 H* 02/13/18 17:09: Phosphorus 2.8 02/13/18 17:09: Troponin I 63.200 H* 02/13/18 18:00: MRSA (PCR) Negative 02/13/18 20:00: Troponin I 149.000 H* 02/13/18 21:25: POC Glucose 217 H 02/13/18 23:00: Troponin I 82.800 H* 02/14/18 04:10: WBC 11.4 H, RBC 4.46 L, Hgb 14.1, Hct 40.8, MCV 91.5, MCH 31.6, MCHC 34.6, RDW 12.4, RDW Differential 40.8, Plt Count 240, MPV 9.1 02/14/18 04:10: Sodium 136, Potassium 3.5, Chloride 101, Carbon Dioxide 26.0, Anion Gap 9, BUN 8, Creatinine 0.79, Estim Creat Clear Calc 75.03, Est GFR (MDRD) Af Amer 126, Est GFR (MDRD) Non-Af 104, BUN/Creatinine Ratio 10.1, Glucose 167 H, Calcium 8.0 L, Triglycerides 112, Cholesterol 160, LDL Cholesterol 101, VLDL Cholesterol 22, HDL Cholesterol 37 L Current Medications Acetaminophen (Tylenol) 650 mg PO Q6H PRN PRN PRN Reason: Mild Pain (0-2/10) Hydrocodone Bitart/Acetaminophen ([place] 5mg-325mg) 1 - 2 tablet PO Q6H PRN PRN PRN Reason: Moderate-severe pain Al Hydroxide/Mg Hydroxide (Mylanta Ii) 30 ml PO Q6H PRN PRN PRN Reason: Gastric burning Aspirin (Aspirin, Baby) 81 mg PO DAILY@0800 [facility] Atorvastatin Calcium (Lipitor) 80 mg PO QHS [facility] Last Admin: 02/13/18 21:14 Dose: Not Given Atropine Sulfate () 0.5 mg IV UD PRN PRN Reason: HR <50 bpm Carvedilol (Coreg) 3.125 mg PO BID [facility] Last Admin: 02/13/18 21:20 Dose: Not Given Famotidine (Pepcid) 20 mg PO BID [facility] Last Admin: 02/13/18 21:14 Dose: Not Given Folic Acid (Folic Acid) 1 mg PO DAILY@0800 [facility] Stop: 02/15/18 08:01 Last Admin: 02/13/18 21:17 Dose: Not Given Hydralazine HCl (Apresoline Iv) 10 mg IV Q4H PRN PRN PRN Reason: SBP > 160 Sodium Chloride () 1,000 mls @ 100 mls/hr IV .Q10H [facility] Last Admin: 02/14/18 00:55 Dose: 100 mls/hr Nitroglycerin/Dextrose () 250 mls @ 3 mls/hr IV .[id number] [facility] PRN Reason: 5 MCG/MIN Last Admin: 02/13/18 21:22 Dose: 3 mls/hr Sodium Chloride () 250 mls @ 15 mls/hr IV .[id number] PRN PRN Reason: SALINE FLUSH Sodium Chloride () 250 mls @ 15 mls/hr IV .[id number] PRN PRN Reason: SALINE FLUSH Lisinopril (Zestril) 5 mg PO DAILY [facility] Lorazepam (Ativan) 2 mg PO Q2H PRN PRN; Protocol PRN Reason: CIWA score > 8 but <15 Lorazepam (Ativan) 2 mg PO UD PRN; Protocol PRN Reason: CIWA score >/=15. Lorazepam (Ativan) 2 mg IV Q2H PRN PRN; Protocol PRN Reason: CIWA score > 8 but <15 Lorazepam (Ativan) 2 mg IV UD PRN; Protocol PRN Reason: CIWA score >/=15. Lorazepam (Ativan) 1 mg PO Q6H PRN PRN PRN Reason: BACK SPASMS/ANXIETY Magnesium Hydroxide (Milk Of Magnesia) 30 ml PO DAILY PRN PRN PRN Reason: Constipation Morphine Sulfate () 1 - 2 mg IV Q4H PRN PRN PRN Reason: PAIN Multivitamins/Minerals ([facility]ivitamin With Minerals) [facility] Last Admin: 02/13/18 21:17 Dose: Not Given Ondansetron HCl (Zofran) 4 mg IV Q8H PRN PRN PRN Reason: NAUSEA Promethazine HCl (Phenergan) 12.5 mg IV Q6H PRN PRN PRN Reason: NAUSEA/VOMITING Sodium Chloride () 500 ml IV BOLUS PRN PRN Reason: VASO-VAGAL PROTOCOL Sodium Chloride () 5 - 30 ml IV UD PRN PRN Reason: SALINE FLUSH Thiamine HCl (Vitamin B1) [facility] Stop: 02/16/18 08:01 Last Admin: 02/13/18 21:17 Dose: Not Given Ticagrelor (Brilinta) 90 mg PO BID [facility] Last Admin: 02/13/18 21:14 Dose: 90 mg Medical Necessity - Tobacco Use Smoking Status: Former smoker Tobacco Use: Non-smoker Assessment/Plan All Active Problems (Last Updated 02/13/18 @ 15:51 by Holli Maurer) ST elevation myocardial infarction (STEMI) of anterior wall (Acute) Elevated BP without diagnosis of hypertension (Acute) The patient is a 67 y/o M w/ no PMHx aside Heavier EtOH Use secondary likely to not being evaluated per a physician in several years who presents to the [facility] as direct admission to the Cardiac Catheterization lab from [facility] ED on 02/13/18 with history of intermittent sternal chest pressure, discomfort with no associated nausea, emesis, diaphoresis or dyspnea ongoing x ~ 1 week, worse with exertion with noted history of radiation to let side of his chest but not into his extremities or neck with recurrence on day of ED presentation while working outside rated upon OSH ED presentation 12/06. (1) Chest pain secondary to Anterior STEMI w/ REduced EF, Diastolic Dysfunction: OSH ED presentation EKG w/ evidence anterior STEMI. Patient administered heparin 4,000 IV bolus, ASA 324 mg po x 1, brillinta load [address] Ruffin contacted for transfer to [place] and accepted. VS initially BP 178/113, HR 113, 97% on 2L NC, trop initial 18. Request per Cardiology for initiation of nitroglycerin drip and IV BB administration (10 mg IV labetalol administered). Patient transitioned to the Cardiac Catheterization lab w/ Dr. 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 Admitted following to the ICU, maintained on telemetry, serial enzyme trend with 18 (OSH ED)-->63.2-->149-->82.8, serial EKG as needed, NG drip eventually discontinued once patient was willing to take the new oral blood pressure regimen, ECHO with moderate concentric LVH, EF 45%, stage I diastolic dysfunction, mid-anterior severely hypokinetic, mid-anteroseptal severely hypokinetic, unable to estimate RVSP secondary to inadequate jet but suspect normal, AM FLP w/ TG 112, TChol 160, LDL 101, VLDL 22, HDL 37. Initiated and maintained on asa, brillinta, high dose statin, coreg, lisinopril. ASA, NG, morphine. (2) Elevated BP without HTN Dx, HTN Emergency: Likely underlying HTN history, NG started prior to transfer and placed on IV BB also, improved following interventions but declined initially oral medications therefore NG continued until this AM with eventual willingness to transition to coreg, lisinopril, PRN hydralazine. (3) EtOH Abuse: Notes routine daily 3 beer/day at least, will obtain mag and phos levels, add MVI, thiamine, folic acid and to be cautious maintain on CIWA protocol. (4) New Diagnosis Diabetes Mellitus type II w/ Hyperglycemia: Admission glucose levels remain elevated, HgbA1c 8%, maintained on ADA, ISS, nutrition consulted for education and teaching. Discussed new diagnosis and diet at length including meal options, need for cautious with wounds/cuts as well as several other lifestyle change improvements to undertake. Discussed oral medication with planned metformin upon discharge once timeline appropriate given recent contrast; however, patient reticent to take any more medication. Willing to take rx and make lifestyle/diet changes but likely not take any regimen. (5) Obesity: Weight loss and lifestyle changes encouraged, nutrition consulted for education and teaching, cardiac rehabilitation consultation also performed. (6) DVT prophylaxis: SCDs, lovenox. PROLONGED CARE TIME: Patient initially extremely reticent to take any oral medications. Discussions undertaken in the AM and through the day with ongoing education regarding new Dx CAD, HTN, DM II. Discussed with patient and CM/SW medication needs with [facility]. These discussions and ongoing interventions w/ [facility] with [facility] required 75 addition minutes above the initial daily progress timeline. Code Visit Inpatient E&M: 28234 Subs Hosp L3 Procedures: 72992 Prolonged InPt Service; first hour
--- NOTE | 2018-02-14 15:36 | CASEMGMT ---
Addendum entered by Anthony Aponte 02/15/18 09:17: Late Entry for 02-15-18: Offered pt to speak with SW re: ETOH use. Pt declined. Original Note: ALYSIA PEDROZA NOTE: ALYSIA PEDROZA contacted [facility] @ [phone] and spoke with ALIREZA Yuan (Ext: [phone]) & notified her of pt's admission @ [facility] for STEMI and need for follow-up appt as soon as possible upon discharge, discharge planned for tomorrow 02/15/18. Jas Ireland also notified pt has never been on prescription medications and needs prescriptions from [facility] for Brilinta as soon as pt discharged, as well as Metformin and several other medications. Edmond Ireland direct messaged Barrett Delgadillo RN of [facility] with [facility] and he contacted this ALYSIA PEDROZA. ALYSIA PEDROZA updated ALYSIA Luevano, of need of follow up appt REJI and all medications pt will need upon discharge tomorrow, including Brilinta, Metformin, Coreg, Lisinopril, Lipitor, and Aspirin. ALYSIA Luevano, stated he placed Return to Clinic order in @ their facility and asked ALYSIA PEDROZA to instruct pt to walk in @ [facility] tomorrow so pt can see nurse to get his prescriptions filled & then they will make follow up appt with pt for the following week. All Scripts, Demographics, H/P, progress notes, labs, and med list faxed to . Pt given specific instructions by this ALYSIA PEDROZA that he is to walk-in @ [facility] tomorrow after discharge from [facility] to have his prescriptions filled and to make follow up appt with them for the following week. Pt voices understanding. ALYSIA PEDROZA also spoke with pt re: option to transfer to [facility]. Pt signed [facility] Transfer Declination Form. Form faxed to [phone]. CM to to follow for discharge planning needs that may arise. Nicolasa NOLAND RN, CM
[2018-02-14 16:01] LABS: Bedside Glucose 139 mg/dL (70-110)
[2018-02-14] MEDS: Atorvastatin Calcium 80 MG Tablet PO (21:06)
[2018-02-15] VITALS (12 sets, daily range): BP systolic 95–142; BP diastolic 56–81; PULSE 71–99; RESP 12–23; TEMP 36.6–36.9; O2SAT 92–98
[2018-02-15 04:58] LABS: Hematocrit 39.8 % (40-54); Hemoglobin 13.6 g/dl (13.0-16.5); Mean Corp Hgb Conc 34.2 g/gl (32-36); Mean Corpuscular Hgb 31.7 pg (27.0-32.0); Mean Corpuscular Volume 92.8 fL (80-94); Mean Platelet Vol. 9.2 fl (6.2-12.0); Platelet Count 235 K/mm3 (150-450); RBC Distribution Width CV 12.5 % (11.6-14.6); RBC Distribution Width SD 41.9 fl (35.1-43.9); Red Blood Count 4.29 M/mm3 (4.6-6.2); White Blood Count 10.5 K/mm3 (4.4-11.0)
[2018-02-15 05:00] LABS: Scan Indicated on CBC? Y/N NO
[2018-02-15 05:12] LABS: Anion Gap 7 (5-15); BUN 15 mg/dL (7-18); BUN/Creat Ratio 18.1 RATIO (10-20); Calcium,Total 8.5 mg/dL (8.5-10.1); Chloride 103 mmol/L (98-107); Creatinine, Serum 0.83 mg/dL (0.70-1.30); EST Glomerular Filtration Rate 98 mL/min (>60); Est Glom Filt Rate - Afr Amer 119 mL/min (>60); Estimated Creatinine Clearance 90.39 ml/min; Glucose 149 mg/dL (74-106); Potassium 3.8 mmol/L (3.5-5.1); Sodium Level 138 mmol/L (136-145)
--- NOTE | 2018-02-15 06:17 | PCM.DC ---
- Discharge Diagnoses Current Active Problems: Current Active and Chronic Problems (Last Updated 02/13/18 @ 15:51 by Holli Maurer) (1) Chest pain secondary to Anterior STEMI w/ Reduced EF, Diastolic Dysfunction (2) Elevated BP without HTN Dx, HTN Emergency (3) EtOH Overuse (4) New Diagnosis Diabetes Mellitus type II w/ Hyperglycemia (5) Obesity You will use the following diet at home:: Calorie/Carbohydrate Controlled (specify 1200, 1400, etc) - ADA 1800/cardiac diet encouraged, Cardiac Your food should be the consistency of: Regular Your liquids should be the consistency of: Regular/Thin Discharge Activity: - - See additional instructions Weight Bearing Status: Weight bearing as tolerated Call your doctor if your incision/area has: Continuous Slow Oozing, Sudden Increased Bleeding, Increased Pain/ Swelling, Increased Redness, Foul Smelling Discharge, Swelling at the incision site Call your doctor if you observe: Fever of 101 or Higher, Inability to urinate, Inability to have a bowel movement, Shortness of breath, Dizziness, Fainting spells, Chest pain, Uncontrolled pain Instructions: First Aid: Heart Attacks, Recognizing a Heart Attack or Angina, Understanding Coronary Artery Disease (CAD), What Is High Blood Pressure?, Discharge Instructions for Heart Attack, Taking Blood Thinners After Percutaneous Coronary Intervention (PCI), Lifestyle Management After Percutaneous Coronary Intervention (PCI), Long-Term Complications of Diabetes, Healthy Meals for Diabetes, Diabetes: Understanding Carbohydrates, Diabetes: Keeping Feet Healthy, Controlling High Blood Pressure, Discharge Instructions for High Blood Pressure (Hypertension), Alcoholism: Myths and Facts Additional Instructions: CARDIOLOGY PCI CATH INSTRUCTIONS. Lifting: Must be less than 5 lbs for 5 days, No restrictions after 14 days. Shower: Yes. Climb stairs: Yes. Bathing in tub or submerged water: No, until cleared per Cardiology at follow-up (call office if any concerns [phone] and may leave voicemail if after hours). Walkin minutes 3 times daily, increase as tolerated. Driving: Resume in 7 days. Sexual activity: Resume in 14 days. Regular activity: Resume 14 days Allergies/Adverse Reactions: Allergies No Known Allergies Allergy (Verified 02/13/18 15:43) Medications to take at Discharge Aspirin [Aspirin, Baby] 81 mg PO DAILY@0800 #30 tab.chew 02/14/18 Atorvastatin Calcium [Lipitor] 80 mg PO QHS #30 tab 07/19/18 Carvedilol [Coreg (Beta Arnel)] 3.125 mg PO BID #60 tab 02/14/18 Lisinopril [Zestril] 5 mg PO DAILY #30 tab 02/14/18 Metformin HCl 500 mg PO BID #60 tab 02/14/18 Ticagrelor [Brilinta] 90 mg PO BID #60 tab 02/14/18 The following prescriptions were given: Aspirin [Aspirin, Baby] 81 mg PO DAILY@0800 #30 tab.chew Atorvastatin Calcium [Lipitor] 80 mg PO QHS #30 tab Lisinopril [Zestril] 5 mg PO DAILY #30 tab Carvedilol [Coreg (Beta Arnel)] 3.125 mg PO BID #60 tab Metformin HCl 500 mg PO BID #60 tab Ticagrelor [Brilinta] 90 mg PO BID #60 tab Primary Care Physician: Rodriguez Gaffney,Out of [Primary Care Provider] - Please follow up with your Primary Care Physician in: [facility]. [facility] will arrange visit Test Results: Test results from this visit will be discussed in further detail at your follow-up appointment, if applicable. Please Follow Up With: Regino Ruffin MD When: Follow-up with Cardiology within 1 week or as directed per their service. Proposed Discharge Date: 02/15/18
--- NOTE | 2018-02-15 06:23 | DCINST_ITS ---
- Discharge Diagnoses Current Active Problems: Current Active and Chronic Problems (Last Updated 02/13/18 @ 15:51 by Holli Maurer) (1) Chest pain secondary to Anterior STEMI w/ Reduced EF, Diastolic Dysfunction (2) Elevated BP without HTN Dx, HTN Emergency (3) EtOH Overuse (4) New Diagnosis Diabetes Mellitus type II w/ Hyperglycemia (5) Obesity You will use the following diet at home:: Calorie/Carbohydrate Controlled ( specify 1200, 1400, etc) - ADA 1800/cardiac diet encouraged, Cardiac Your food should be the consistency of: Regular Your liquids should be the consistency of: Regular/Thin Discharge Activity: - - See additional instructions Weight Bearing Status: Weight bearing as tolerated Call your doctor if your incision/area has: Continuous Slow Oozing, Sudden Increased Bleeding, Increased Pain/ Swelling, Increased Redness, Foul Smelling Discharge, Swelling at the incision site Call your doctor if you observe: Fever of 101 or Higher, Inability to urinate, Inability to have a bowel movement, Shortness of breath, Dizziness, Fainting spells, Chest pain, Uncontrolled pain Instructions: First Aid: Heart Attacks, Recognizing a Heart Attack or Angina, Understanding Coronary Artery Disease (CAD), What Is High Blood Pressure?, Discharge Instructions for Heart Attack, Taking Blood Thinners After Percutaneous Coronary Intervention (PCI), Lifestyle Management After Percutaneous Coronary Intervention (PCI), Long-Term Complications of Diabetes, Healthy Meals for Diabetes, Diabetes: Understanding Carbohydrates, Diabetes: Keeping Feet Healthy, Controlling High Blood Pressure, Discharge Instructions for High Blood Pressure (Hypertension), Alcoholism: Myths and Facts Additional Instructions: CARDIOLOGY PCI CATH INSTRUCTIONS. Lifting: Must be less than 5 lbs for 5 days, No restrictions after 14 days. Shower: Yes. Climb stairs: Yes. Bathing in tub or submerged water: No, until cleared per Cardiology at follow-up (call office if any concerns [phone] and may leave voicemail if after hours). Walkin minutes 3 times daily, increase as tolerated. Driving: Resume in 7 days. Sexual activity: Resume in 14 days. Regular activity: Resume 14 days Allergies/Adverse Reactions: Allergies No Known Allergies Allergy (Verified 02/13/18 15:43) Medications to take at Discharge Aspirin [Aspirin, Baby] 81 mg PO DAILY@0800 #30 tab.chew 02/14/18 Atorvastatin Calcium [Lipitor] 80 mg PO QHS #30 tab 07/19/18 Carvedilol [Coreg (Beta Arnel)] 3.125 mg PO BID #60 tab 02/14/18 Lisinopril [Zestril] 5 mg PO DAILY #30 tab 02/14/18 Metformin HCl 500 mg PO BID #60 tab 02/14/18 Ticagrelor [Brilinta] 90 mg PO BID #60 tab 02/14/18 The following prescriptions were given: Aspirin [Aspirin, Baby] 81 mg PO DAILY@0800 #30 tab.chew Atorvastatin Calcium [Lipitor] 80 mg PO QHS #30 tab Lisinopril [Zestril] 5 mg PO DAILY #30 tab Carvedilol [Coreg (Beta Arnel)] 3.125 mg PO BID #60 tab Metformin HCl 500 mg PO BID #60 tab Ticagrelor [Brilinta] 90 mg PO BID #60 tab Primary Care Physician: Rodriguez Gaffney,Out of [Primary Care Provider] - Please follow up with your Primary Care Physician in: [facility]. [facility] will arrange visit Test Results: Test results from this visit will be discussed in further detail at your follow- up appointment, if applicable. Please Follow Up With: Regino Ruffin MD When: Follow-up with Cardiology within 1 week or as directed per their service. Proposed Discharge Date: 02/15/18
[2018-02-15] MEDS: Aspirin 81 MG TAB.CHEW PO (08:08)
[2018-02-15] MEDS: Carvedilol 3.125 MG TABLET PO (08:08)
[2018-02-15] MEDS: TICAGRELOR 90 MG TABLET PO (08:08)
[2018-02-15] MEDS: Lisinopril 5 MG Tablet PO (08:09)
--- NOTE | 2018-02-15 10:00 | EKG12_ITS ---
Test Reason : POST PCI Blood Pressure : / mmHG Vent. Rate : 083 BPM Atrial Rate : 083 BPM P-R Int : 166 ms QRS Dur : 098 ms QT Int : 400 ms P-R-T Axes : 062 052 -13 degrees QTc Int : 470 ms Normal sinus rhythm [address] & T wave abnormality, consider anterolateral ischemia Prolonged QT Abnormal ECG Confirmed by RAGHAVENDRA SORIA, DENNIS ([id number]), international editorial producer ARCHIE OWEN ([id number]) on 02/19/2018 2:32:38 PM Referred By: ROSA Confirmed By:DENNIS MABRY MD
--- NOTE | 2018-02-15 10:04 | PCM.DC.SUM ---
Discharge Date and Diagnosis Date of Admission: 02/13/18 Date of Discharge: 02/15/18 - Primary Discharge Diagnosis (1) Chest pain secondary to Anterior STEMI w/ Reduced EF, Diastolic Dysfunction (2) Elevated BP without HTN Dx, HTN Emergency (3) EtOH Abuse (4) New Diagnosis Diabetes Mellitus type II w/ Hyperglycemia (5) Obesity - Secondary Discharge Diagnosis Chronic Problems (Last Updated 02/13/18 @ 15:51 by Holli Maurer) Alcohol abuse (Chronic) Hypertension (Chronic) Hospital Course and Treatment Dr. Ruffin Cardiology Operations: - - 02/13/18 Cardiac Catheterization w/ Dr. 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 Procedures: 2-D Echocardiogram, EKG Summary of Care Provided: The patient is a 67 y/o M w/ no PMHx aside Heavier EtOH Use secondary likely to not being evaluated per a physician in several years who presented to the [facility] as direct admission to the Cardiac Catheterization lab from [facility] ED on 02/13/18 with history of intermittent sternal chest pressure, discomfort with no associated nausea, emesis, diaphoresis or dyspnea ongoing x ~ 1 week, worse with exertion with noted history of radiation to let side of his chest but not into his extremities or neck with recurrence on day of ED presentation while working outside rated upon OSH ED presentation 12/06. OSH ED presentation EKG w/ evidence anterior STEMI. Patient administered heparin 4,000 IV bolus, ASA 324 mg po x 1, brillinta load [address] Ruffin contacted for transfer to [place] and accepted. VS initially BP 178/113, HR 113, 97% on 2L NC, trop initial 18. Request per Cardiology for initiation of nitroglycerin drip and IV BB administration (10 mg IV labetalol administered). Patient transitioned to the Cardiac Catheterization lab w/ Dr. 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 Admitted following to the ICU, maintained on telemetry, serial enzyme trend with 18 (OSH ED)-->63.2-->149-->82.8, serial EKG as needed, NG drip eventually discontinued once patient was willing to take the new oral blood pressure regimen, ECHO with moderate concentric LVH, EF 45%, stage I diastolic dysfunction, mid-anterior severely hypokinetic, mid-anteroseptal severely hypokinetic, unable to estimate RVSP secondary to inadequate jet but suspect normal, AM FLP w/ TG 112, TChol 160, LDL 101, VLDL 22, HDL 37. Initiated and maintained on asa, brillinta, high dose statin, coreg, lisinopril. ASA, NG, morphine. Noted routine daily 3 beer/day, normal mag and phos levels, added MVI, thiamine, folic acid, maintained on CIWA protocol to be cautious and encouraged decreased intake. During admission noted glucose levels elevated, HgbA1c 8%, maintained on ADA, ISS, nutrition consulted for education and teaching. Discussed new diagnosis and diet at length including meal options, need for cautious with wounds/cuts as well as several other lifestyle change improvements to undertake. Discussed oral medication with planned metformin upon discharge once timeline appropriate given recent contrast; however, patient reticent to take any more medication. Willing to take rx and make lifestyle/diet changes but likely not take any regimen. Patient discharged to home w/ CM/SW aggressive interventions w/ [facility] and RN visit to assist in set-up of [facility] with the [facility] DAY OF DISCHARGE PROGRESS NOTE: Subjective: Patient without acute event overnight per self and nursing report. Patient denied any further chest discomfort. Blood pressures improved since initiation of regimen. Patient understands plan of care with [facility] to [facility] and have nurse visit to set up upcoming [facility] with the [facility]. Patient denies fever, chills, nausea, emesis, abdominal pain, chest pain or dyspnea. Patient agreeable to discharge to home, eager. Patient will be discharged with follow-up with primary care physician with visit to be made at [facility] RN visit upon discharge and Cardiology follow-up if [facility] amenable with Dr. Ruffin in 1-2 weeks. Objective: T 98.4, heart rate 84, BP 120/81, respiratory rate 15, 95% on room air. Physical Examination: General: awake, alert, oriented x 3 and cooperative, seated upright in the ICU bedside chair, NAD. Skin: normal color, turgor, no icterus, cyanosis, groin access check w/ no bleeding, well appearing. HEENT: AT/NC, EOMI, PERRLA, MMM. Lungs: CTA bilaterally, moderate effort, mild decrease BL bases, no rales, ronchi or wheezing. Heart: Regular rate with regular rhythm; no gallop, rub audible. Abdomen: soft, obese, NTTP, ND, normal BS. Extremities: no cyanosis, clubbing or edema. Neurological: patient awake, alert, oriented x 3; cognitive function appears baseline intact; pupils equally reactive to light and accomodation; cranial nerves II-XII grossly normal, moving all extremities, strength intact. Psychiatric: affect appears normal, no acute evidence of depressive or anxiety feelings. Assessment and Plan: Please see hospital summary above. Discharge Activity: - - See additional instructions Weight Bearing Status: Weight bearing as tolerated Call your doctor if your incision/area has: Continuous Slow Oozing, Sudden Increased Bleeding, Increased Pain/ Swelling, Increased Redness, Foul Smelling Discharge, Swelling at the incision site Call your doctor if you observe: Fever of 101 or Higher, Inability to urinate, Inability to have a bowel movement, Shortness of breath, Dizziness, Fainting spells, Chest pain, Uncontrolled pain Home Medications: Medications to take at Discharge Aspirin [Aspirin, Baby] 81 mg PO DAILY@0800 #30 tab.chew 02/14/18 Atorvastatin Calcium [Lipitor] 80 mg PO QHS #30 tab 02/14/18 Carvedilol [Coreg (Beta Arnel)] 3.125 mg PO BID #60 tab 02/14/18 Lisinopril [Zestril] 5 mg PO DAILY #30 tab 02/14/18 Metformin HCl 500 mg PO BID #60 tab 02/14/18 Ticagrelor [Brilinta] 90 mg PO BID #60 tab 02/14/18 Following Prescrptions Were Given to Patient: Aspirin [Aspirin, Baby] 81 mg PO DAILY@0800 #30 tab.chew Atorvastatin Calcium [Lipitor] 80 mg PO QHS #30 tab Lisinopril [Zestril] 5 mg PO DAILY #30 tab Carvedilol [Coreg (Beta Arnel)] 3.125 mg PO BID #60 tab Metformin HCl 500 mg PO BID #60 tab Ticagrelor [Brilinta] 90 mg PO BID #60 tab Primary Care Physician: Rodriguez Doctor,Out of [Primary Care Provider] - Please follow up with your Primary Care Physician in: [facility]. They will arrange visit Please Follow Up With: Regino Ruffin MD When: Follow-up with Cardiology within 1 week or as directed per their service. Patient Instructions: Controlling High Blood Pressure, Long-Term Complications of Diabetes, Healthy Meals for Diabetes, Diabetes: Understanding Carbohydrates, Diabetes: Keeping Feet Healthy, First Aid: Heart Attacks, Recognizing a Heart Attack or Angina, Alcoholism: Myths and Facts, Understanding Coronary Artery Disease (CAD), What Is High Blood Pressure?, Discharge Instructions for Heart Attack, Discharge Instructions for High Blood Pressure (Hypertension), Taking Blood Thinners After Percutaneous Coronary Intervention (PCI), Lifestyle Management After Percutaneous Coronary Intervention (PCI) Disposition: Home Minutes spent on discharge:: 35 Patient Condition:: Good Medical Necessity - Tobacco Use Smoking Status: Former smoker Tobacco Use: Non-smoker Meaningful Use Info Meaningful Use Diagnoses (Choose all that apply): AMI - AMI Aspirin given w/in 24hrs of arrival?: Yes ASA at discharge?: Yes Statins at discharge?: Yes Omid/ARB at discharge?: Yes Beta Arnel at discharge?: Yes Done w/ Acute MT measure.: Yes Code Visit Inpatient E&M: 78772 Disch Hosp
--- NOTE | 2018-02-15 10:10 | DS.PCM_ITS ---
Discharge Date and Diagnosis Date of Admission: 02/13/18 Date of Discharge: 02/15/18 - Primary Discharge Diagnosis (1) Chest pain secondary to Anterior STEMI w/ Reduced EF, Diastolic Dysfunction (2) Elevated BP without HTN Dx, HTN Emergency (3) EtOH Abuse (4) New Diagnosis Diabetes Mellitus type II w/ Hyperglycemia (5) Obesity - Secondary Discharge Diagnosis Chronic Problems (Last Updated 02/13/18 @ 15:51 by Holli Maurer) Alcohol abuse (Chronic) Hypertension (Chronic) Hospital Course and Treatment Dr. Ruffin Cardiology Operations: - - 02/13/18 Cardiac Catheterization w/ Dr. 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 Procedures: 2-D Echocardiogram, EKG Summary of Care Provided: The patient is a 67 y/o M w/ no PMHx aside Heavier EtOH Use secondary likely to not being evaluated per a physician in several years who presented to the [facility] as direct admission to the Cardiac Catheterization lab from [facility] ED on 02/13/18 with history of intermittent sternal chest pressure, discomfort with no associated nausea, emesis, diaphoresis or dyspnea ongoing x ~ 1 week, worse with exertion with noted history of radiation to let side of his chest but not into his extremities or neck with recurrence on day of ED presentation while working outside rated upon OSH ED presentation 12/06. OSH ED presentation EKG w/ evidence anterior STEMI. Patient administered heparin 4,000 IV bolus, ASA 324 mg po x 1, brillinta load [address] Ruffin contacted for transfer to [place] and accepted. VS initially BP 178/113, HR 113, 97% on 2L NC, trop initial 18. Request per Cardiology for initiation of nitroglycerin drip and IV BB administration (10 mg IV labetalol administered). Patient transitioned to the Cardiac Catheterization lab w/ Dr. 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 Admitted following to the ICU, maintained on telemetry, serial enzyme trend with 18 (OSH ED)-->63.2-->149-->82.8, serial EKG as needed, NG drip eventually discontinued once patient was willing to take the new oral blood pressure regimen, ECHO with moderate concentric LVH, EF 45%, stage I diastolic dysfunction, mid-anterior severely hypokinetic, mid- anteroseptal severely hypokinetic, unable to estimate RVSP secondary to inadequate jet but suspect normal, AM FLP w/ TG 112, TChol 160, LDL 101, VLDL 22 , HDL 37. Initiated and maintained on asa, brillinta, high dose statin, coreg, lisinopril. ASA, NG, morphine. Noted routine daily 3 beer/day, normal mag and phos levels, added MVI, thiamine, folic acid, maintained on CIWA protocol to be cautious and encouraged decreased intake. During admission noted glucose levels elevated, HgbA1c 8%, maintained on ADA, ISS, nutrition consulted for education and teaching. Discussed new diagnosis and diet at length including meal options , need for cautious with wounds/cuts as well as several other lifestyle change improvements to undertake. Discussed oral medication with planned metformin upon discharge once timeline appropriate given recent contrast; however, patient reticent to take any more medication. Willing to take rx and make lifestyle/diet changes but likely not take any regimen. Patient discharged to home w/ CM/SW aggressive interventions w/ [facility] / [facility] to be filled there and RN visit to assist in set-up of follow[facility]up with the [facility]. DAY OF DISCHARGE PROGRESS NOTE: Subjective: Patient without acute event overnight per self and nursing report. Patient denied any further chest discomfort. Blood pressures improved since initiation of regimen. Patient understands plan of care with follow-up immediately to [facility] to [facility] and have nurse visit to set up upcoming physician visit with the [facility]. Patient denies fever, chills, nausea, emesis, abdominal pain, chest pain or dyspnea. Patient agreeable to discharge to home, eager. Patient will be discharged with follow-up with primary care physician with visit to be made at [facility] RN visit upon discharge and Cardiology follow-up if [facility] amenable with Dr. Ruffin in 1-2 weeks. Objective: T 98.4, heart rate 84, BP 120/81, respiratory rate 15, 95% on room air. Physical Examination: General: awake, alert, oriented x 3 and cooperative, seated upright in the ICU bedside chair, NAD. Skin: normal color, turgor, no icterus, cyanosis, groin access check w/ no bleeding, well appearing. HEENT: AT/NC, EOMI, PERRLA, MMM. Lungs: CTA bilaterally, moderate effort, mild decrease BL bases, no rales, ronchi or wheezing. Heart: Regular rate with regular rhythm; no gallop, rub audible. Abdomen: soft, obese, NTTP, ND, normal BS. Extremities: no cyanosis, clubbing or edema. Neurological: patient awake, alert, oriented x 3; cognitive function appears baseline intact; pupils equally reactive to light and accomodation; cranial nerves II-XII grossly normal, moving all extremities, strength intact. Psychiatric: affect appears normal, no acute evidence of depressive or anxiety feelings. Assessment and Plan: Please see hospital summary above. Discharge Activity: - - See additional instructions Weight Bearing Status: Weight bearing as tolerated Call your doctor if your incision/area has: Continuous Slow Oozing, Sudden Increased Bleeding, Increased Pain/ Swelling, Increased Redness, Foul Smelling Discharge, Swelling at the incision site Call your doctor if you observe: Fever of 101 or Higher, Inability to urinate, Inability to have a bowel movement, Shortness of breath, Dizziness, Fainting spells, Chest pain, Uncontrolled pain Home Medications: Medications to take at Discharge Aspirin [Aspirin, Baby] 81 mg PO DAILY@0800 #30 tab.chew 02/14/18 Atorvastatin Calcium [Lipitor] 80 mg PO QHS #30 tab 02/14/18 Carvedilol [Coreg (Beta Arnel)] 3.125 mg PO BID #60 tab 02/14/18 Lisinopril [Zestril] 5 mg PO DAILY #30 tab 02/14/18 Metformin HCl 500 mg PO BID #60 tab 02/14/18 Ticagrelor [Brilinta] 90 mg PO BID #60 tab 02/14/18 Following Prescrptions Were Given to Patient: Aspirin [Aspirin, Baby] 81 mg PO DAILY@0800 #30 tab.chew Atorvastatin Calcium [Lipitor] 80 mg PO QHS #30 tab Lisinopril [Zestril] 5 mg PO DAILY #30 tab Carvedilol [Coreg (Beta Arnel)] 3.125 mg PO BID #60 tab Metformin HCl 500 mg PO BID #60 tab Ticagrelor [Brilinta] 90 mg PO BID #60 tab Primary Care Physician: Rodriguez Doctor,Out of [Primary Care Provider] - Please follow up with your Primary Care Physician in: [facility]. They will arrange visit Please Follow Up With: Regino Ruffin MD When: Follow-up with Cardiology within 1 week or as directed per their service. Patient Instructions: Controlling High Blood Pressure, Long-Term Complications of Diabetes, Healthy Meals for Diabetes, Diabetes: Understanding Carbohydrates, Diabetes: Keeping Feet Healthy, First Aid: Heart Attacks, Recognizing a Heart Attack or Angina, Alcoholism: Myths and Facts, Understanding Coronary Artery Disease (CAD), What Is High Blood Pressure?, Discharge Instructions for Heart Attack, Discharge Instructions for High Blood Pressure (Hypertension), Taking Blood Thinners After Percutaneous Coronary Intervention (PCI), Lifestyle Management After Percutaneous Coronary Intervention (PCI) Disposition: Home Minutes spent on discharge:: 35 Patient Condition:: Good Medical Necessity - Tobacco Use Smoking Status: Former smoker Tobacco Use: Non-smoker Meaningful Use Info Meaningful Use Diagnoses (Choose all that apply): AMI - AMI Aspirin given w/in 24hrs of arrival?: Yes ASA at discharge?: Yes Statins at discharge?: Yes Omid/ARB at discharge?: Yes Beta Arnel at discharge?: Yes Done w/ Acute SD measure.: Yes Code Visit Inpatient E&M: 97591 Disch Hosp
--- NOTE | 2018-02-15 12:47 | PCM.PN.CARD ---
Subjectve: Patient doing very well this morning. Telemetry negative. Blood pressure improved. No chest pain or angina. Right groin is clean/dry/intact. Unfortunately patient requires his medications to be filled by the outpatient clinic at the [facility], which is not open on Saturdays. Troponin peak was 142 and trending down to 82. Hemoglobin and creatinine have remained within nominal limits. EKG shows normal sinus rhythm with resolving anterior apical ST elevation and T-wave inversion. Echocardiogram yesterday showed moderate LV dysfunction with mid anterior apical hypokinesis overall ejection fraction around 45%. Objective: Vital Signs Temp Pulse Resp BP Pulse Ox 98.4 F 88 18 128/81 H 96 02/15/18 06:23 02/15/18 10:02 02/15/18 10:02 02/15/18 10:02 02/15/18 10:02 Oxygen Flow Rate (L/min) 0 Oxygen Delivery Method Room Air Weight: 250 lb 0.067 oz Body Mass Index (BMI) 35.7 Intake and Output for Last 24 Hours 02/13/18 02/14/18 02/15/18 23:59 23:59 23:59 Intake Total 3897.9 / 3897.9 Output Total 750 / 750 1350 / 1350 475 / 475 Balance -750 / -750 2547.9 / 2547.9 -475 / -475 General: Awake, Alert, Oriented x 3 HEENT: PERRL, EOMI, Sclera Non Icteric Neck: Supple, Good ROM, No Lymph Node Enlargement Lungs: Clear to auscultation Cardiovascular: Regular Rhythm, Normal S1, Normal S2, No Murmurs, No Rubs, No Gallops Vascular: No Carotid Bruits, Normal Femoral Pulses, Normal Radial Pulses, Normal Dorsalis Pedal Pulse, Normal Posterior Tibial Pulses Abdomen: Bowel Sounds Present, Soft, Non Tender, No HSM, No Organomegaly Extremities: No Cyanosis, No Clubbing, No edema Neurological: No Focal Motor or Sensory Deficit 02/15/18 04:45: WBC 10.5, RBC 4.29 L, Hgb 13.6, Hct 39.8 L, MCV 92.8, MCH 31.7, MCHC 34.2, RDW 12.5, RDW Differential 41.9, Plt Count 235, MPV 9.2 02/15/18 04:45: Sodium 138, Potassium 3.8, Chloride 103, Carbon Dioxide 28.0, Anion Gap 7, BUN 15, Creatinine 0.83, Est GFR (MDRD) Af Amer 119, Est GFR (MDRD) Non-Af 98, BUN/Creatinine Ratio 18.1, Glucose 149 H, Calcium 8.5 Rhythm: EKG: ECHO: Stress Test: Cardiac Cath: PCI: CT Surgery: Holter monitor: EPS: PPM: CXR: Chest CT Scan: Medical Necessity - Tobacco Use Smoking Status: Former smoker Tobacco Use: Non-smoker Assessment/Plan 1. Coronary artery disease: The patient presented with acute anterior wall ST elevation myocardial infarction superimposed on several day history of worsening substernal chest pain, requiring emergent catheterization and 2 drug-eluting stents to the LAD as well as balloon angioplasty to the ostium of the diagonal branch. Patient has occluded obtuse marginal #2 with adequate left to left collaterals. No additional angioplasty or evaluation is needed at this time. Echocardiogram showed baseline LV dysfunction of a moderate degree with an EF around 45% and anterior apical wall motion abnormalities consistent with his previous anterior wall IN. Recommend the patient continue baby aspirin, Brilinta. I had a long and thorough discussion with the patient regarding his antihypertensive and what appear to be new diabetic medications as he is a newly diagnosed diabetic. Although the patient is reluctant to proceed with medications I explained to him the enormous benefits and minimal risk that they forward to patients with cardiovascular disease. The patient appears to have reluctantly agreed to take his medications. We will repeat this in 4 months time after cardiac rehab is been completed. Due to [facility]'s [facility], he requires discharged today in order to avoid being subject to a large medical bills for this admission to say nothing of the fact that he be unable to get his outpatient medications over the weekend. Patient's telemetry has been negative for the past 24 hours and his chest pain has resolved, and his troponins have trended downwards. I believe is reasonable for the patient be discharged to go directly to the [facility] outpatient clinic to obtain his medications followed by discharge home. Patient will follow-up either myself or the NH clinic going forward. 2. Diabetes: We will defer to hospitalist assistance. Many thanks to Dr. Holli Maurer for her assistance both yesterday and with the patient's care in the hospital. 3. Hyperlipidemia: His LDL is 101 his HDL is 37. Continue Lipitor therapy. Will repeat lipid profile in 6 weeks time. 4. Thank you very much for the opportunity to participate in the cardiac care of your patient. Many thanks again to Dr. Holli Maurer for her assistance with the care of this patient. Patient may be discharged home with follow-up either with myself or the [facility] cardiology clinic. Code Visit Inpatient E&M: [id number] Subs Hosp L2
--- NOTE | 2018-02-15 12:53 | PN.CARD_ITS ---
Subjectve: Patient doing very well this morning. Telemetry negative. Blood pressure improved. No chest pain or angina. Right groin is clean/dry/intact. Unfortunately patient requires his medications to be filled by the outpatient clinic at the [place], which is not open on Saturdays. Troponin peak was 142 and trending down to 82. Hemoglobin and creatinine have remained within nominal limits. EKG shows normal sinus rhythm with resolving anterior apical ST elevation and T-wave inversion. Echocardiogram yesterday showed moderate LV dysfunction with mid anterior apical hypokinesis overall ejection fraction around 45%. Objective: Vital Signs Temp Pulse Resp BP Pulse Ox 98.4 F 88 18 128/81 H 96 02/15/18 06:23 02/15/18 10:02 02/15/18 10:02 02/15/18 10:02 02/15/18 10:02 Oxygen Flow Rate (L/min) 0 Oxygen Delivery Method Room Air Weight: 250 lb 0.067 oz Body Mass Index (BMI) 35.7 Intake and Output for Last 24 Hours 02/13/18 02/14/18 02/15/18 23:59 23:59 23:59 Intake Total 3897.9 / 3897.9 Output Total 750 / 750 1350 / 1350 475 / 475 Balance -750 / -750 2547.9 / 2547.9 -475 / -475 General: Awake, Alert, Oriented x 3 HEENT: PERRL, EOMI, Sclera Non Icteric Neck: Supple, Good ROM, No Lymph Node Enlargement Lungs: Clear to auscultation Cardiovascular: Regular Rhythm, Normal S1, Normal S2, No Murmurs, No Rubs, No Gallops Vascular: No Carotid Bruits, Normal Femoral Pulses, Normal Radial Pulses, Normal Dorsalis Pedal Pulse, Normal Posterior Tibial Pulses Abdomen: Bowel Sounds Present, Soft, Non Tender, No HSM, No Organomegaly Extremities: No Cyanosis, No Clubbing, No edema Neurological: No Focal Motor or Sensory Deficit 02/15/18 04:45: WBC 10.5, RBC 4.29 L, Hgb 13.6, Hct 39.8 L, MCV 92.8, MCH 31.7, MCHC 34.2, RDW 12.5, RDW Differential 41.9, Plt Count 235, MPV 9.2 02/15/18 04:45: Sodium 138, Potassium 3.8, Chloride 103, Carbon Dioxide 28.0, Anion Gap 7, BUN 15, Creatinine 0.83, Est GFR (MDRD) Af Amer 119, Est GFR (MDRD ) Non-Af 98, BUN/Creatinine Ratio 18.1, Glucose 149 H, Calcium 8.5 Rhythm: EKG: ECHO: Stress Test: Cardiac Cath: PCI: CT Surgery: Holter monitor: EPS: PPM: CXR: Chest CT Scan: Medical Necessity - Tobacco Use Smoking Status: Former smoker Tobacco Use: Non-smoker Assessment/Plan 1. Coronary artery disease: The patient presented with acute anterior wall ST elevation myocardial infarction superimposed on several day history of worsening substernal chest pain, requiring emergent catheterization and 2 drug- eluting stents to the LAD as well as balloon angioplasty to the ostium of the diagonal branch. Patient has occluded obtuse marginal #2 with adequate left to left collaterals. No additional angioplasty or evaluation is needed at this time. Echocardiogram showed baseline LV dysfunction of a moderate degree with an EF around 45% and anterior apical wall motion abnormalities consistent with his previous anterior wall SC. Recommend the patient continue baby aspirin, Brilinta. I had a long and thorough discussion with the patient regarding his antihypertensive and what appear to be new diabetic medications as he is a newly diagnosed diabetic. Although the patient is reluctant to proceed with medications I explained to him the enormous benefits and minimal risk that they forward to patients with cardiovascular disease. The patient appears to have reluctantly agreed to take his medications. We will repeat this in 4 months time after cardiac rehab is been completed. Due to patient's [facility] status, he requires discharged today in order to avoid being subject to a large medical bills for this admission to say nothing of the fact that he be unable to get his outpatient medications over the weekend. Patient's telemetry has been negative for the past 24 hours and his chest pain has resolved, and his troponins have trended downwards. I believe is reasonable for the patient be discharged to go directly to the [facility] outpatient clinic to obtain his medications followed by discharge home. Patient will follow-up either myself or the [facility] clinic going forward. 2. Diabetes: We will defer to hospitalist assistance. Many thanks to Dr. Holli Maurer for her assistance both yesterday and with the patient's care in the hospital. 3. Hyperlipidemia: His LDL is 101 his HDL is 37. Continue Lipitor therapy. Will repeat lipid profile in 6 weeks time. 4. Thank you very much for the opportunity to participate in the cardiac care of your patient. Many thanks again to Dr. Holli Maurer for her assistance with the care of this patient. Patient may be discharged home with follow-up either with myself or the [place] cardiology clinic. Code Visit Inpatient E&M: 94453 Subs Hosp L2
== END 2018-02-15 10:00 | disposition home or self-care (01) | DRG 247 ==
LOC: ICU 15:19
PROVIDERS: Admitting Provider Internal Medicine Cardiovascular Disease; Visit Provider Family Medicine
DX: I21.09 ST elevation (STEMI) myocardial infarction involving other coronary artery of anterior wall (principal); I16.1 Hypertensive emergency; E11.65 Type 2 diabetes mellitus with hyperglycemia; I10 Essential (primary) hypertension; F10.10 Alcohol abuse, uncomplicated; E66.9 Obesity, unspecified; Z68.35 Body mass index [BMI] 35.0-35.9, adult; Z71.3 Dietary counseling and surveillance; E78.5 Hyperlipidemia, unspecified; I25.10 Atherosclerotic heart disease of native coronary artery without angina pectoris; E66.01 Morbid (severe) obesity due to excess calories; Z68.36 Body mass index [BMI] 36.0-36.9, adult; Z87.891 Personal history of nicotine dependence
CPT/HCPCS: 80048; 80061; 82962; 83036; 83735; 84100; 84484; 85027; 85347; 85610; 85730; 87641; 92921; 92941; 93005; 93306; 93458; 97802; C1760; J7030; J7040; C1725; C1769; C1874; C1887; C9606; Q9967

== ENCOUNTER 2024-02-20 10:34 | Inpatient (IN) | payer MEDICARE, SELFPAY ==
[2024-02-20] VITALS (7 sets, daily range): BP systolic 149–183; BP diastolic 85–103; PULSE 78–101; RESP 13–17; TEMP 36.2–36.9; O2SAT 95–99; BMI 33.5; BMI 33.1
--- NOTE | 2024-02-20 10:37 | EDS_ITS ---
HPI History of Present Illness Chief Complaint: Eye Problem [facility] Medical History Former tobacco use Obesity Ischemic cardiomyopathy Atherosclerotic heart disease of [place] coronary artery without angina pectoris Hyperlipidemia Alcohol abuse Hypertension ST elevation myocardial infarction (STEMI) of anterior wall Home Medications ?Medication ?Instructions ?Recorded ?Last Taken ?Type NK 02/20/24 Unknown History Allergy/AdvReac Type Severity Reaction Status Date / Time No Known Allergies Allergy Verified 02/20/24 10:35 Family History Father Heart disease Hypertension Mother Heart disease Hypertension Surgical History History of coronary artery stent placement Social History household members: none Smoking Status: Former smoker alcohol intake: current alcohol intake frequency: 0-2 drinks per day Alcohol type: beer substance use type: does not use caffeine: Yes Type: coffee Number of servings: 2 EXAM Physical Exam Const Vital Signs: 02/20/24 10:34 Temperature 97.1 F L Temperature Source Temporal Pulse Rate 101 H Respiratory Rate 14 Blood Pressure 183/103 H Blood Pressure Mean 129 Pulse Ox 96 Oxygen Delivery Method Room Air MDM MDM MDM Narrative Medical decision making narrative: HISTORY OF PRESENT ILLNESS: 73-year-old male presents with concern for loss of vision right eye. Notes he was sent over by his eye physician Dr. Murphy. He states his last known well was on 02/17 sometime in the afternoon. He notes he lost vision in his right visual field. Denies any palpitations chest pain, difficulty with coordination, vomiting, head trauma, slurred speech, facial drooping. REVIEW OF SYSTEMS: Pertinent positives: Visual loss Pertinent negatives: Focal weakness, numbness, vomiting, head trauma PHYSICAL EXAM: Nursing triage notes reviewed, Vital signs reviewed Constitutional: please see mdm HENT: MMM Eyes: Pupils equal round and reactive to light, Extraocular muscles intact Neck: No stridor, no JVD, full neck ROM Lungs: Clear to auscultation, No wheezing or rales. No increased work of breathing, no conversational dyspnea, no accessory muscle use, no nasal flaring. No respiratory distress noted Heart: Regular rate and rhythm, No murmurs, No rubs and No gallops, 2+ distal pulses (radial, femoral, posterior tibial) in all extremities Abdomen: Soft, there is no tenderness, rigidity, rebound or guarding, no obvious peritoneal signs, no palpable pulsatile abdominal masses, no auscultated abdominal bruit : No CVAT Extremities: No edema Neuro: Patient was alert, oriented x 3. He had no extremity ataxia, extremity weakness or sensory loss. He had decreased vision in his right visual field the right eye only (homonymous hemianopsia), NIH of 2 (for complete hemianopsia) Skin: No rash or lesions noted MEDICAL DECISION MAKING: Chief Complaint: Visual loss External records reviewed: Reviewed prior catheterization in 2018 Factors affecting care: Hypertension, hyperlipidemia, ischemic cardiomyopathy, alcohol abuse, CAD status post stent, hyperlipidemia Social determinants of health: Alcohol abuse History obtained from others: none Consults: none [facility] Narrative: Patient was initially hypertensive, mildly tachycardic otherwise afebrile. Exam with right homonymous hemianopsia. NIH 2. The patient was not a candidate for TNK or thrombectomy given last known well was outside of either therapeutic window. I considered the following differential diagnosis: ICH, large vessel occlusion, central retinal artery occlusion, central vein occlusion, retinal detachment I obtained a broad lab and imaging workup to further elucidate etiology of patient's complaint. ALL IMAGES (IF OBTAINED) HAVE BEEN PERSONALLY REVIEWED AND INTERPRETED BY MYSELF. EKG with normal sinus rhythm, normal axis, no intervals, no STEMI CT of the head and neck shows evidence of acute CVA and thromboembolic disease I have personally reviewed the patient's chest x-ray. Chest x-ray is unremarkable for pulmonary edema, pneumothorax, pneumonia or focal cardiopulmonary abnormality. High-sensitivity troponin is negative, no evidence of myocardial ischemia No evidence of coagulopathy on PT/INR and PTT BMP without significant electrolyte disturbances, no [place] CBC without leukocytosis, severe anemia, no thrombocytopenia. The synthesis of the patient's history, physical exam, labs images addressed acute CVA. Given age, poor control blood pressure signs of acute CVA patient will be admitted for respiratory modification, likely MRI and echocardiogram. Discussed with patient agrees to stay. Discussed with hospitalist Dr. Maurer who recommended admit to PCU. The patient and/or family, caregivers express understanding. The patient and/or family, caregivers agrees with the plan. Shared decision making: I will have a discussion with the patient and or visitors regarding risk/benefits of further testing or admission. They will be made aware of of the risk/benefits inherent in this decision they will be given the opportunity to voice understanding. Total critical care time today provided was at least 0 minutes. This excludes separately billable procedures. Critical care time (if documented) is secondary to the patient having high probability of clinically significant/life threatening deterioration in the patient's condition which required my urgent intervention. Impression: 1. Acute CVA 2. History of hypertension 3. History of med noncompliance Dispo: Admit to PCU observation This note was generated with [employer] dictation software. It may contain incorrect words, spelling, and punctuation that were not noted in review of the chart prior to signing. Discharge Plan Triage Chief Complaint: Eye Problem ED Provider: Xavier Davis Dx/Rx/DC Orders Prescriptions: No Action NK Primary Care Provider: Rodriguez Gaffney,Out of Referrals: Rodriguez Gaffney,Out of [Primary Care Provider] - Print Language: Venezuelan
--- NOTE | 2024-02-20 10:40 | CT_ITS ---
We are attempting to reach an attending provider to discuss findings. An addendum with communication details will be sent when the communication is complete. STUDY: CTA HEAD AND NECK WITH CONTRAST REASON FOR EXAM: Male, 73 years old. Neuro deficit, RT eye vision loss stroke suspected RADIATION DOSAGE (If Supplied By Facility): CTDIvol = ( 24.60 ) mGy, DLP = ( 1635.81 ) mGycm TECHNIQUE: CT angiography was performed with a multi-detector CT scanner. Data acquisition was obtained from the skull base through the vertex following intravenous administration of IV 100mL [id number]-[id number]. MIP images were reconstructed from the axial data set. Post-processing of the angiographic images was performed, with multiplanar reformation and 3D reconstruction. Individualized dose optimization techniques were used for this CT. The protocol utilizes one or more of the following dose reduction techniques: automated exposure control, adjustment of mA and/or kV according to patient size, and/or use of iterative reconstruction technique. COMPARISON: No relevant priors. FINDINGS: Normal bilateral petrous carotid arteries. Normal right cavernous carotid artery with a normal supraclinoid bifurcation. Normal left cavernous carotid artery with a normal supraclinoid bifurcation. Normal right A1 segment of the anterior cerebral artery. Normal left A1 segment of the anterior cerebral artery. Normal intact anterior communicating artery (ACOM). Normal bilateral A2 segments of the anterior cerebral arteries. Normal right M1 and M2 segments of the middle cerebral arteries, with a normal M1 bifurcation. Normal left M1 and M2 segments of the middle cerebral arteries, with a normal M1 bifurcation. origin of the right [employer] off the right internal carotid artery rather than a widely patent right posterior communicating artery (PCOM). Normal left posterior communicating artery (PCOM). Normal bilateral vertebral arteries. Normal basilar artery with a normal basilar bifurcation. The visualized bilateral superior cerebellar (SCA) arteries are normal. Tiny branch coming off the right superior cerebellar artery near its origin is directed cephalad. This is most likely a tiny thalamostriate branch. Developmentally absent right P1 segment. Normal left P1 segment. Normal right P2 and right P3 segments. Partial thromboembolic occlusion in the P2 segment of the left posterior cerebral artery in the paramesencephalic cistern accounting for decreased contrast opacification in the P3 segment of the left posterior cerebral artery. There is no demonstrated aneurysm of the [place]. There is no demonstrated abnormality of the visualized brain. AORTIC ARCH: Normal visualized aortic arch. Normal origins of the brachiocephalic, left common carotid, and left subclavian arteries. RIGHT CAROTID ARTERIES: Normal right common carotid artery (CCA). 60% stenosis of the origin of the right carotid bulb due to noncalcified plaques. 60% stenosis of the origin of the right internal carotid (ICA) artery corresponding to the right carotid bulb due to noncalcified plaques.. Normal widely patent remaining visualized cervical portion of the right internal carotid artery. Normal origin of the right external carotid artery (ECA). LEFT CAROTID ARTERIES: Normal left common carotid artery (CCA). Minimal nonocclusive calcified plaques in the left carotid bulb. Widely patent origin of the left carotid bulb and left proximal internal carotid artery Normal remaining visualized cervical portion of the left internal carotid artery. Normal origin of the left external carotid artery (ECA). VERTEBRAL ARTERIES: High-grade stenosis at the subclavian origin of the left vertebral artery. Markedly hypoplastic left vertebral artery. Widely patent dominant right vertebral artery in all [address]/CTA Head AND Neck W/ Contrast IMPRESSION: 1. Partial thromboembolic occlusion of the left P2 segment in the left perimesencephalic cistern, report diminished contrast visualization of the left P3 segment. This accounts for the recent hypodense cortical-based ischemic infarction involving the left [employer] territory. 2. Limited CTA head due to venous contamination. No other suspicious significant vaso-occlusive disease of the anterior end posterior intracranial circulation. 3. 60% stenosis at the origin of the right carotid bulb due to noncalcified plaques. The remainder of the right cervical internal coronary is widely patent. 4. Widely patent left cervical internal carotid artery. 5. 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 6. Widely patent right vertebral artery in all 4 segments. 7. Normal aortic arch and origins of the great vessels. Electronically Signed: Kei Manjarrez MD at 12:22 EDT ,
--- NOTE | 2024-02-20 10:40 | EKG12_ITS ---
Test Reason : Blood Pressure : / mmHG Vent. Rate : 096 BPM Atrial Rate : 096 BPM P-R Int : 180 ms QRS Dur : 080 ms QT Int : 330 ms P-R-T Axes : 050 011 -53 degrees QTc Int : 416 ms Normal sinus rhythm T wave abnormality, consider inferior ischemia Abnormal ECG Confirmed by ROBERTO CARLOS SORIA, DEXTER ([id number]), purchasing expeditor JAMES OJEDA ([id number]) on 02/26/2024 1:36:27 PM Referred By: Confirmed By:ALEXIS AZEVEDO MD
[2024-02-20 11:13] LABS: Absolute Lymphocyte Count 2.01 X10^3/uL (0.83-4.51); Absolute Neutrophil Count 5.9 X10^3/uL (2.0-7.7); Basophil# 0.07 X10^3/uL; Basophil% 0.8 % (0-1); Eosinophil# 0.12 X10^3/uL; Eosinophils% 1.3 % (0-5); Hematocrit 50.5 % (40-54); Hemoglobin 16.7 g/dL (13.0-16.5); Lymphocyte # 2.01 X10^3/ul (0.83-4.51); Lymphocyte % 22.4 % (19-41); Mean Corp Hgb Conc 33.1 g/dL (32-36); Mean Corpuscular Hgb 28.9 pg (27.0-32.0); Mean Corpuscular Volume 87.4 fL (80-94); Mean Platelet Vol. 9.4 fl (6.2-12.0); Monocyte# 0.85 X10^3/uL; Monocyte% 9.5 % (0-10); NRBC Flagged by Analyzer 0 % (0-5); Neutrophil # 5.88 X10^3/uL (2.7-7.7); Neutrophil % 65.7 % (47-70); Platelet Count 266 K/mm3 (150-450); RBC Distribution Width CV 13.6 % (11.6-14.6); RBC Distribution Width SD 43.6 fl (35.1-43.9); Red Blood Count 5.78 M/mm3 (4.6-6.2)
[2024-02-20 11:20] LABS: Bedside Glucose 214 mg/dL (74-106)
[2024-02-20 11:21] LABS: Prothrombin Time (Protime)PT. 13.3 SECONDS (11.7-14.9)
[2024-02-20 11:22] LABS: Partial Thromboplast Time 25.4 Seconds (24.1-36.2)
[2024-02-20 11:31] LABS: Anion Gap 7 (5-15); BUN 10 mg/dL (7-18); BUN/Creat Ratio 11.8 RATIO (10-20); Calcium,Total 9.4 mg/dL (8.5-10.1); Chloride 102 mmol/L (98-107); Creatinine, Serum 0.85 mg/dL (0.70-1.30); EST Glomerular Filtration Rate 94 mL/min (>60); Est Glom Filt Rate - Afr Amer 114 mL/min (>60); Estimated Creatinine Clearance 95.78 ml/min; Glucose 190 mg/dL (74-106); Potassium 3.7 mmol/L (3.5-5.1); Sodium Level 134 mmol/L (136-145); Troponin-I HS 28 pg/mL (3.0-78.0)
--- NOTE | 2024-02-20 11:55 | RAD_ITS ---
EXAM: XR CHEST, 1 VIEW CLINICAL INDICATION: Neuro deficit, acute, stroke suspected TECHNIQUE: Frontal view of the chest. COMPARISON: No relevant prior studies available. FINDINGS: LUNGS AND PLEURAL SPACES: Unremarkable. No consolidation or edema. No pneumothorax. No effusion. HEART: Unremarkable. Cardiac silhouette not enlarged. MEDIASTINUM: Central airways and mediastinal contour are unremarkable. BONES/JOINTS: Unremarkable. No acute fracture. SOFT TISSUES: Unremarkable. RAD/Chest 1 View IMPRESSION: No radiographic evidence of acute cardiopulmonary disease. Electronically Signed: Kei Manjarrez MD at 12:22 EDT ,
--- NOTE | 2024-02-20 13:28 | ED.RN ---
CURRENTLY WAITING ON PCU TO BRING NEURO CONSULT [place] TO ED. LASHONDA GUILLERMO,CHARGE NURSE AND ALANA, ED DIRECTOR NOTIFIED
--- NOTE | 2024-02-20 14:22 | HP.PCM.HOS_ITS ---
HPI - General General Date of Admission: 02/20/24 Date of Service: 02/20/24 Chief Complaint: R Eye vision loss. HPI Narrative The patient is a 73 y/[facility]: Diabetes mellitus type II, CAD s/p PCI with history STEMI, Ischemic cardiomyopathy, HTN, HLD, Hx Former EtOH abuse now down to maximum 2 beers daily, Former tobacco use who presents to the [facility] ED on 02/20/24 with history of loss of right vision, specifically lateral hemianopsia in his right eye while he was working on his truck when he was attempting to turn to the right he noticed he could not see with last known well 02/18/2020 4 in the afternoon with evaluation on day of presentation per his generator assembler Dr. Murphy with immediate referral to the ED for evaluation with concern for acute stroke. He denies any other neurological symptoms. He notes that he has not taken his medication for nearly 6 years including the asa, statin and HTN regimen nor any diabetic regimen. He does not see a physician. Workup in the ED included T97.1, heart rate 101, BP 160/99, respiratory rate 16, 98% on room air with most recent repeat vitals heart rate 91, BP 172/102, respiratory at 17, 96% on room air, CBC with WC 9, hemoglobin 16.7, MCV 87.4, platelet 266 without marked shift, unremarkable coags, BMP with sodium 134, glucose 190 otherwise unremarkable, troponin 28, chest x-ray with no acute cardiopulmonary findings, CTA head and neck with partial thromboembolic occlusion of the left P2 segment and left perimesencephalic cistern with diminished contrast visualization of the left P3 segment accounting for recent hypodense cortical-based ischemic infarct involving the left [employer]' territory, 60% stenosis of the origin the right carotid bulb due to noncalcific plaques with remainder of the right cervical internal carotid artery widely patent, widely patent left cervical internal carotid artery, high-grade stenosis at the subclavian origin of the markedly hypoplastic left vertebral artery, widely patent right vertebral artery in all 4 segments, normal aortic arch and origins of the great vessels, EKG with sinus rhythm with no acute evidence of ischemia. In the ED patient administered FS ASA 325 mg x 1. [facility] History History of alcohol abuse Diabetes mellitus, type 2 Former tobacco use Obesity Ischemic cardiomyopathy Atherosclerotic heart disease of [place] coronary artery without angina pectoris Hyperlipidemia Alcohol abuse Hypertension ST elevation myocardial infarction (STEMI) of anterior wall Home Medications ?Medication ?Instructions ?Recorded ?Last Taken ?Type NK 02/20/24 Unknown History Allergy/AdvReac Type Severity Reaction Status Date / Time No Known Allergies Allergy Verified 02/20/24 10:35 Family History Father Heart disease Hypertension Mother Heart disease Hypertension Surgical History History of coronary artery stent placement Social History (Updated 02/20/24 @ 15:[address] Holli Maurer MD) household members: none Smoking Status: Former smoker alcohol intake: current alcohol intake frequency: 0-2 drinks per day Alcohol type: beer details: Prior was heavy beer intake, down to maximum 2 beers daily x 6 years. substance use type: does not use caffeine: Yes Type: coffee Number of servings: 2 ROS ROS Narrative Admission Review of Systems: CONSTITUTIONAL: No weight loss, fever, chills, weakness or fatigue. HEENT: + Right eye lateral vision deficits, loss of vision. Eyes: No blurred vision, double vision or yellow sclerae. Ears, Nose, Throat: No hearing loss, sneezing, congestion, runny nose or sore throat. SKIN: No rash or itching, lesions, wounds. CARDIOVASCULAR: No chest pain, chest pressure or chest discomfort, palpitations, edema, orthopnea, syncopal events. RESPIRATORY: No shortness of breath, cough or sputum, wheezing, hemoptysis. GASTROINTESTINAL: No anorexia, nausea, vomiting or diarrhea, abdominal pain, melena, BRBPR. GENITOURINARY: No dysuria, frequency, urgency or retention. NEUROLOGICAL: No headache, dizziness, syncope, paralysis, ataxia, numbness or tingling in the extremities, focal weakness, change in bowel or bladder control, seizure. MUSCULOSKELETAL:+ muscle, back pain, joint pain or stiffness. HEMATOLOGIC: No anemia, bleeding or bruising. LYMPHATICS: No enlarged nodes. No history of splenectomy. PSYCHIATRIC: No history of depression or anxiety. ENDOCRINOLOGIC: No reports of sweating, cold or heat intolerance. No polyuria or polydipsia. ALLERGIES: No history of asthma, hives, eczema or rhinitis. Vital Signs Vital Signs Vital Signs: 02/20/24 10:34 02/20/24 10:34 02/20/24 10:58 Temperature 97.1 F L Temperature Source Temporal Pulse Rate 101 H 101 H Respiratory Rate 16 14 Blood Pressure 160/99 H 183/103 H Blood Pressure Mean 119 129 Pulse Ox 98 96 Oxygen Delivery Method Room Air Room Air Room Air 02/20/24 12:34 02/20/24 14:00 Temperature Temperature Source Pulse Rate 89 91 Respiratory Rate 13 17 Blood Pressure 164/85 H 172/102 H Blood Pressure Mean 111 125 Pulse Ox 96 Oxygen Delivery Method Room Air Weight Weight: 233 lb 11.04 oz Body Mass Index (BMI) 33.5 Physical Exam Narrative Physical Examination: General: Awake, alert, oriented x 3 and cooperative, seated upright in the ED bed in no apparent distress. Skin: Normal color, normal turgor, no icterus, no cyanosis. HEENT: AT/NC, EOMI, PERRLA, right eye upper and lower right lateral quadrant vision deficits evident, MMM, difficult to discern carotid bruit and JVD secondary to very thickened durán. Lungs: Mildly diminished, greater bases, appropriate effort BL bases, no rales, ronchi or wheezing. Heart: Regular rate and rhythm; no gallop, rub audible. Abdomen: Soft, obese, NTTP, distant normal BS, no markedly appreciated distention or HSM. Extremities: No cyanosis, no clubbing, no marked peripheral edema. Neurological: Patient awake, alert, oriented as noted, cognitive function intact; pupils equally reactive to light and accommodation, cranial nerves grossly normal except noted visual deficits with right lateral hemianopsia evidence, moving all 4 extremities, no focal deficits, strength preserved, finger-nose and [id number] appropriate, no drift of the extremities, negative Babinski Psychiatric: Affect appears normal, lengthy discussion about patient intention to leave 02/21/2024 and unclear willingness to take medications, no acute evidence of depressive or anxiety feelings. Results Lab / Micro Data 02/20/24 11:00 02/20/24 11:00 Labs: Laboratory Results - last 24 hr 02/20/24 10:57: POC Glucose 214 H 02/20/24 11:00: WBC 9.0, RBC 5.78, Hgb 16.7 H, Hct 50.5, MCV 87.4, MCH 28.9, MCHC 33.1, RDW Std Deviation 43.6, RDW Coeff of Shyam 13.6, Plt Count 266, MPV 9.4, Immature Gran % (Auto) 0.300, Neut % (Auto) 65.7, Lymph % (Auto) 22.4, Frio % (Auto) 9.5, Eos % (Auto) 1.3, Baso % (Auto) 0.8, Absolute Neuts (auto) 5.9, Absolute Lymphs (auto) 2.01, Nucleated RBC % 0, PT 13.3, INR 1.0, APTT 25.4, S odium 134 L, Potassium 3.7, Chloride 102, Carbon Dioxide 25.0, Anion Gap 7, BUN 10, Creatinine 0.85, Estim Creat Clear Calc 95.78, Est GFR (MDRD) Af Amer 114, Est GFR (MDRD) Non-Af 94, BUN/Creatinine Ratio 11.8, Glucose 190 H, Calcium 9.4, Troponin I High Sens 28 Imaging Radiology Impression Head/Neck CTA 02/20/24 10:40 IMPRESSION: 1. Partial thromboembolic occlusion of the left P2 segment in the left perimesencephalic cistern, report diminished contrast visualization of the left P3 segment. This accounts for the recent hypodense cortical-based ischemic infarction involving the left [employer]' territory. 2. Limited CTA head due to venous contamination. No other suspicious significant vaso-occlusive disease of the anterior end posterior intracranial circulation. 3. 60% stenosis at the origin of the right carotid bulb due to noncalcified plaques. The remainder of the right cervical internal coronary is widely patent. 4. Widely patent left cervical internal carotid artery. 5. 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 6. Widely patent right vertebral artery in all 4 segments. 7. Normal aortic arch and origins of the great vessels. Electronically Signed: Kei Manjarrez MD at 12:22 EDT , ADDENDUM: 02/20/24 0855 IMPRESSION: 1. Partial thromboembolic occlusion of the left P2 segment in the left perimesencephalic cistern, report diminished contrast visualization of the left P3 segment. This accounts for the recent hypodense cortical-based ischemic infarction involving the left [employer] territory. 2. Limited CTA head due to venous contamination. No other suspicious significant vaso-occlusive disease of the anterior end posterior intracranial circulation. 3. 60% stenosis at the origin of the right carotid bulb due to noncalcified plaques. The remainder of the right cervical internal coronary is widely patent. 4. Widely patent left cervical internal carotid artery. 5. 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 6. Widely patent right vertebral artery in all 4 segments. 7. Normal aortic arch and origins of the great vessels. N.B. : The above Results were Read Back by Kei Manjarrez MD to Regino More DO, and understanding confirmed on 02/20/2024 12:27:59 (ET). Electronically Signed: Kei Manjarrez MD at 12:22 EDT , Chest X-Ray 02/20/24 11:55 IMPRESSION: No radiographic evidence of acute cardiopulmonary disease. Electronically Signed: Kei Manjarrez MD at 12:22 EDT , Assessment & Plan Assessment/Plan (1) CVA (cerebral vascular accident): PLAN: Plan The patient is a 73 y/o [facility]Hx: Diabetes mellitus type II, CAD s/p PCI with history STEMI, Ischemic cardiomyopathy, HTN, HLD, Hx Former EtOH abuse now down to maximum 2 beers daily, Former tobacco use who presents to the [facility] ED on 02/20/24 with history of loss of right vision, specifically lateral hemianopsia in his right eye with last known well 02/18/2020 4 in the afternoon with evaluation on day of presentation per his generator assembler Dr. Murphy with immediate referral to the ED for evaluation with concern for acute stroke. #1. Right eye lateral hemianopsia vision loss secondary to Acute CVA with CT evidence partial thromboembolic occlusion of the left P2 segment and left perimesencephalic cistern with diminished contrast visualization of the left P3 segment accounting for recent subacute hypodense cortical-based ischemic infarct involving the left [employer]' territory with concurrent right carotid bulb stenosis and high-grade stenosis of the subclavian origin: In the ED imaging w/ noted CTA head and neck with partial thromboembolic occlusion of the left P2 segment and left perimesencephalic cistern with diminished contrast visualization of the left P3 segment accounting for recent hypodense cortical-based ischemic infarct involving the left [employer]' territory, 60% stenosis of the origin the right carotid bulb due to noncalcific plaques with remainder of the right cervical internal carotid artery widely patent, widely patent left cervical internal carotid artery, high-grade stenosis at the subclavian origin of the markedly hypoplastic left vertebral artery, widely patent right vertebral artery in all 4 segments, normal aortic arch and origins of the great vessels Will admit to PCU, will obtain MRI Brain, ECHO w/ bubble study, PT/OT/Speech/Nutrition evaluation per protocol. Will allow permissive HTN, will restart asa, restart statin w/ AM FLP, fall precautions. Mag, TSH, FLP, HgbA1c requested. Maintain on fall and aspiration precautions. Neurology consulted. Will need follow-up with Vascular surgery given findings as noted. #2. CAD with history STEMI with ischemic cardiomyopathy, : Most recently noted cardiac catheterization 02/13/2018 with noted double vessel CAD of the subtotal mid LAD and chronically occluded OM#2 with collaterals w/ PTCA/MARY of the mid LAD and PCI w/ PTCA to the ostial diag and unsuccessful wire crossing of the OM#2 w/ noted collaterals. ECHO at that time concurrently w/ moderate concentric LVH, EF 45%, stage I diastolic dysfunction, mid-anterior severely hypokinetic, mid-anteroseptal severely hypokinetic, unable to estimate RVSP secondary to inadequate jet but suspect normal. Will restart aspirin and atorvastatin, temporally holding hypertensive regimen for permissive hypertension but following will restart Coreg and lisinopril home regimen. #3. Diabetes mellitus type II: Clarifying regimen but for now would hold oral regimen regardless, hemoglobin A1c requested, nutrition consulted per protocol, maintain on ADA diet, accu checks w/ ISS. #4. Former EtOH Abuse: Patient prior when he had STEMI heavy beer intake, now down to maximum 2 beers daily. Patient not interested in complete sobriety. #5. Hypertension: Given presentation we will maintain permissive hypertension with PRN agents per stroke protocol and once completed and appropriate will reinitiate Coreg 3.125 mg p.o. twice daily and lisinopril 5 mg daily. #6. Hyperlipidemia: Will reinitiate statin regimen. AM FLP. #7. Obesity: Weight loss and lifestyle changes encouraged. #8. Former tobacco use: Encourage continued tobacco cessation. #9. DVT prophylaxis: Lovenox. #10. CODE status: Patient HCPOA is not in place and he declines at this time to name anyone despite even the fact that his sister is in the room with him, he does note that living will is in place. Discussed CODE status at length including difference between FULL code, DNR-CCA and DNR-CC status. Following discussions about the differences in these status, requested DNR-CCA, no intubation. Advanced Care Planning Face to Face Time: 16 minutes. Charges/Coding Visit Charges Inpatient E&M: 61025 Init Hosp L3 Procedures Hospitalists Procedures: 04281 Advncd Care Plan 30 Min
[2024-02-20] MEDS: Aspirin 325 MG Tablet PO (14:31)
--- NOTE | 2024-02-20 14:31 | ED.RN ---
RN AND DR. OCONNOR AT BEDSIDE REVIEWING PATIENTS CTA RESULTS. PT INFORMED IT WOULD BE BEST FOR HIM TO BE ADMITTED TO HOSPITAL FOR FURTHER TESTING. PATIENT HESITANT AT FIRST THEN AGREEABLE TO STAY. HOSPITALIST PAGED
[2024-02-20 15:34] LABS: Magnesium 2.2 mg/dL (1.6-2.6)
--- NOTE | 2024-02-20 15:39 | MRI_ITS ---
We are attempting to reach an attending provider to discuss findings. An addendum with communication details will be sent when the communication is complete. STUDY: MRI BRAIN WITHOUT CONTRAST REASON FOR EXAM: Male, 73 years old. CVA R peripheral vision loss since yesterday TECHNIQUE: Standardized multiplanar fat and water weighted pulse sequences were obtained. COMPARISON: None. FINDINGS: Atrophy and periventricular white matter ischemic changes without mass effect or restricted diffusion. . There is however diffusely increased signal intensity on the FLAIR and T2-weighted imaging sequences within the left parietal and occipital lobes demonstrating restricted diffusion consistent with acute ischemic infarction. There is very small focus of T2 shine through in the right parietal lobe Normal bilateral basal ganglia. Normal thalami. There is no extra-axial fluid accumulation. Normal flow voids within the major intracranial circulation suggesting patency by spin echo criteria. Normal sella turcica, pituitary gland, infundibular stalk, optic chiasm and hypothalamus. Normal tectal plate and pineal gland. Normal midbrain, travon and medulla. Normal cerebellum. Normal basal cisterns. Normal bilateral temporal bones. Normal bilateral internal auditory canals. No demonstrated orbital abnormality, within the constraints of a routine brain study. Normal visualized paranasal sinuses. Normal calvarium and skull base. Normal visualized soft tissue structures. Normal visualized upper cervical spine. MRI/Brain without Contrast IMPRESSION: Mild atrophy and periventricular white matter ischemic changes. Acute ischemic infarction in the left occipital and parietal lobes.. Electronically Signed: Cj Beck MD at 19:09 EDT ,
--- NOTE | 2024-02-20 15:39 | ECHOD_ITS ---
Version 2 Reason For Study: TIA/CVA Procedure This was a 2D Doppler, Color Flow transthoracic echocardiogram. The study was technically difficult. Contrast injection was performed. Exam performed portable in patient room. Left Ventricle Normal LV size. Small apical thrombus noted. The estimated ejection fraction is 45 %. Hypokinesis of the anterior, anteroseptal and apical dillard. Right Ventricle Normal RV size. Normal systolic function. Atria The left atrium is mildly enlarged. Normal right atrium. No doppler evidence for ASD. Bubble contrast study negative for right to left interatrial shunt. Mitral Valve There is no mitral valve stenosis. No mitral valve insufficiency. Tricuspid Valve There is no tricuspid stenosis. Trivial tricuspid valve insufficiency. Unable to estimate RV systolic pressure due to insufficient tricuspid regurgitant envelope. Aortic Valve Trisinus/trileaflet aortic valve. Aortic sclerosis, no stenosis. There is no aortic stenosis. No aortic valve insufficiency. Pulmonic Valve There is no pulmonic valvular stenosis. No pulmonic valve insufficiency. Great Vessels Normal aortic root. Pericardium/Pleural No pericardial effusion. Medication Diluted definity 4.0ml given slow IV push to enhance endocardial definition. Performed a rapid injection of agitated mix of 9 cc saline and 1cc air to assess for atrial septal defect. MMode/2D Measurements & Calculations LVIDd: 5.8 cm IVSd: 1.0 cm LVOT diam: 2.0 cm LVIDs: 3.8 cm LVPWd: 1.1 cm RVDd: 3.8 cm FS: 34.0 % LVOT area: 3.0 cm2 Ao root diam: 3.3 cm LAV(MOD-bp): 79.1 ml LA A4 area: 21.4 cm2 LA dimension: 4.0 cm LAV(MOD-bp) Indexed: 35.5 ml/m2 LAV(MOD-sp2): 83.7 ml LAV(MOD-sp4): 68.5 ml TAPSE: 2.0 cm RA A4 area: 21.1 cm2 Time Measurements MV dec time: 0.21 sec Doppler Measurements & Calculations MV E max mahesh: 67.8 cm/sec Lat Peak E' Mahesh: 7.4 cm/sec Med Peak E' Mahesh: 8.8 cm/sec MV A max mahesh: 111.7 cm/sec E/E' lat: 9.2 E/E' med: 7.7 MV E/A: 0.61 MV V2 max: 115.5 cm/sec MV P1/2t max mahesh: 95.6 cm/sec Ao V2 max: 133.8 cm/sec MV max P.3 mmHg MV P1/2t: 72.8 msec Ao max P.2 mmHg MV V2 mean: 67.4 cm/sec MV dec slope: 384.7 cm/sec2 Ao V2 mean: 93.9 cm/sec MV mean P.1 mmHg Ao mean P.9 mmHg MV V2 VTI: 33.4 cm MVA(P1/2t): 3.0 cm2 Ao V2 VTI: 25.4 cm MVA(VTI): 1.7 cm2 AV (velocity ratio): 0.73 YENI(I,D): 2.2 cm2 YENI(V,D): 2.0 cm2 LV V1 max: 90.1 cm/sec SV(LVOT): 55.5 ml PA V2 max: 100.8 cm/sec LV V1 max P.2 mmHg PA max PG (full): 2.7 mmHg LV V1 mean P.7 mmHg LV V1 mean: 60.9 cm/sec LV V1 VTI: 18.5 cm ECHO/Echo Complete W/ Contrast Interpretation Summary The estimated ejection fraction is 45 %. Hypokinesis of the anterior, anteroseptal and apical dillard. The left atrium is mildly enlarged. Small apical thrombus noted Ordering Physician: Holli Maurer Referring Physician: OTD Performed By: Fior Iglesias, WOLF, RVT
[2024-02-20 16:42] LABS: Bedside Glucose 160 mg/dL (74-106)
[2024-02-20] MEDS: Insulin Lispro 100 UNIT/ML INSULN.PEN SC ×2 (16:58→22:22)
[2024-02-20] MEDS: 0.9% Normal Saline (1000mL) 1,000 ML 100 ML IV (18:49)
[2024-02-20] MEDS: Atorvastatin Calcium 80 MG Tablet PO (22:23)
[2024-02-20 22:50] LABS: Bedside Glucose 195 mg/dL (74-106)
[2024-02-21] VITALS: BP 149/98; PULSE 76; RESP 17; TEMP 36.6; O2SAT 98
[2024-02-21 03:40] VITALS: BMI 33.5
[2024-02-21 04:00] VITALS: BP 151/80; PULSE 69; RESP 16; TEMP 36.4; O2SAT 98
[2024-02-21] MEDS: Insulin Lispro 100 UNIT/ML INSULN.PEN SC ×2 (06:28→12:21)
[2024-02-21 06:38] LABS: Absolute Lymphocyte Count 2.21 X10^3/uL (0.83-4.51); Basophil# 0.05 X10^3/uL; Basophil% 0.7 % (0-1); Eosinophil# 0.19 X10^3/uL; Eosinophils% 2.6 % (0-5); Hematocrit 45.6 % (40-54); Hemoglobin 15.1 g/dL (13.0-16.5); Lymphocyte # 2.21 X10^3/ul (0.83-4.51); Lymphocyte % 30.2 % (19-41); Mean Corp Hgb Conc 33.1 g/dL (32-36); Mean Corpuscular Volume 87.5 fL (80-94); Mean Platelet Vol. 9.7 fl (6.2-12.0); Monocyte# 0.85 X10^3/uL; Monocyte% 11.6 % (0-10); NRBC Flagged by Analyzer 0 % (0-5); Neutrophil # 3.99 X10^3/uL (2.7-7.7); Neutrophil % 54.6 % (47-70); Platelet Count 247 K/mm3 (150-450); RBC Distribution Width CV 13.4 % (11.6-14.6); RBC Distribution Width SD 43.1 fl (35.1-43.9); Red Blood Count 5.21 M/mm3 (4.6-6.2); White Blood Count 7.3 K/mm3 (4.4-11.0)
[2024-02-21 06:51] LABS: Bedside Glucose 155 mg/dL (74-106)
[2024-02-21 07:11] LABS: ALB/GLOB Ratio 0.8 RATIO (0.9-2.4); AST(SGOT) 17 U/L (15-37); Alanine Aminotransfer ALT/SGPT 17 U/L (16-61); Albumin, Serum 3.1 g/dL (3.2-5.0); Alkaline Phosphatase 81 U/L (45-117); Anion Gap 7 (5-15); BUN 10 mg/dL (7-18); BUN/Creat Ratio 15.3 RATIO (10-20); Calcium,Total 8.5 mg/dL (8.5-10.1); Chloride 105 mmol/L (98-107); Cholesterol 187 mg/dL (200); Creatinine, Serum 0.65 mg/dL (0.70-1.30); EST Glomerular Filtration Rate 127 mL/min (>60); Est Glom Filt Rate - Afr Amer 154 mL/min (>60); Estimated Creatinine Clearance 101.67 ml/min; Glucose 163 mg/dL (74-106); High Density Lipoprotein 33 mg/dL; Potassium 3.6 mmol/L (3.5-5.1); Protein, Total 7.1 g/dL (6.4-8.2); Sodium Level 137 mmol/L (136-145); Thyroid Stim Hormone (TSH) 4.02 uIU/mL (0.358-3.74); Triglycerides 149 mg/dL; Very Low Density Lipoprotein 30 mg/dL (5-40)
[2024-02-21 08:00] VITALS: BP 174/95; PULSE 76; RESP 14; TEMP 36.7; O2SAT 95
[2024-02-21 08:22] VITALS: O2SAT 96
--- NOTE | 2024-02-21 09:23 | PN.HOSP_ITS ---
Reason for Visit Reason for Visit: Diagnoses Cerebral infarction, unspecified (02/20/24) Subjective Subjective Patient is a 73-year-old gentleman sent to the emergency department by his ocean transportation intermediary with concern for possible stroke. Patient had apparently lost vision in his right eye. Objective Data Objective Data Vital Signs: Vital Signs Temp Pulse Resp BP Pulse Ox O2 Del Method 97.6 F L 69 16 151/80 H 98 Room Air 02/21/24 04:00 02/21/24 04:00 02/21/24 04:00 02/21/24 04:00 02/21/24 04:00 02/21/24 04:00 Oxygen Delivery Method Room Air Weight: 105.8 kg Body Mass Index (BMI) 33.5 Intake & Output: Intake and Output for Last 24 Hours 02/19/24 02/20/24 02/21/24 23:59 23:59 23:59 Intake Total 1360 / 1360 Balance 1360 / 1360 Lab / Micro Data 02/21/24 06:04 02/21/24 06:04 Labs: Laboratory Results - last 24 hr 02/20/24 10:57: POC Glucose 214 H 02/20/24 11:00: WBC 9.0, RBC 5.78, Hgb 16.7 H, Hct 50.5, MCV 87.4, MCH 28.9, MCHC 33.1, RDW Std Deviation 43.6, RDW Coeff of Shyam 13.6, Plt Count 266, MPV 9.4, Immature Gran % (Auto) 0.300, Neut % (Auto) 65.7, Lymph % (Auto) 22.4, [place] % (Auto) 9.5, Eos % (Auto) 1.3, Baso % (Auto) 0.8, Absolute Neuts (auto) 5.9, Absolute Lymphs (auto) 2.01, Nucleated RBC % 0, PT 13.3, INR 1.0, APTT 25.4, S odium 134 L, Potassium 3.7, Chloride 102, Carbon Dioxide 25.0, Anion Gap 7, BUN 10, Creatinine 0.85, Estim Creat Clear Calc 95.78, Est GFR (MDRD) Af Amer 114, Est GFR (MDRD) Non-Af 94, BUN/Creatinine Ratio 11.8, Glucose 190 H, Calcium 9.4, Magnesium 2.2, Troponin I High Sens 28 07/24/24 15:49: POC Glucose 160 H 02/20/24 21:40: POC Glucose 195 H 02/21/24 06:04: WBC 7.3, RBC 5.21, Hgb 15.1, Hct 45.6, MCV 87.5, MCH 29.0, MCHC 33.1, RDW Std Deviation 43.1, RDW Coeff of Shyam 13.4, Plt Count 247, MPV 9.7, Immature Gran % (Auto) 0.300, Neut % (Auto) 54.6, Lymph % (Auto) 30.2, [place] % (Auto) 11.6 H, Eos % (Auto) 2.6, Baso % (Auto) 0.7, Absolute Neuts (auto) 4.0, Absolute Lymphs (auto) 2.21, Nucleated RBC % 0, Sodium 137, Potassium 3.6, Chloride 105, Carbon Dioxide 25.0, Anion Gap 7, BUN 10, Creatinine 0.65 L, Estim Creat Clear Calc 101.67, Est GFR (MDRD) Af Amer 154, Est GFR (MDRD) Non-Af 127, BUN/Creatinine Ratio 15.3, Glucose 163 H, Calcium 8.5, Total Bilirubin 0.30, AST 17, ALT 17, Alkaline Phosphatase 81, Total Protein 7.1, Albumin 3.1 L, Globulin 4.0, Albumin/Globulin Ratio 0.8 L, Triglycerides 149, Cholesterol 187, LDL Cholesterol 124, VLDL Cholesterol 30, HDL Cholesterol 33 L, TSH 4.02 H 02/21/24 06:24: POC Glucose 155 H Radiography Diagnostic Testing: Radiology Impression Head/Neck CTA 02/20/24 10:40 IMPRESSION: 1. Partial thromboembolic occlusion of the left P2 segment in the left perimesencephalic cistern, report diminished contrast visualization of the left P3 segment. This accounts for the recent hypodense cortical-based ischemic infarction involving the left FAX MACHINE REPAIRER territory. 2. Limited CTA head due to venous contamination. No other suspicious significant vaso-occlusive disease of the anterior end posterior intracranial circulation. 3. 60% stenosis at the origin of the right carotid bulb due to noncalcified plaques. The remainder of the right cervical internal coronary is widely patent. 4. Widely patent left cervical internal carotid artery. 5. 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 6. Widely patent right vertebral artery in all 4 segments. 7. Normal aortic arch and origins of the great vessels. Electronically Signed: Kei Manjarrez MD at 12:22 EDT , ADDENDUM: 02/20/24 1234 IMPRESSION: 1. Partial thromboembolic occlusion of the left P2 segment in the left perimesencephalic cistern, report diminished contrast visualization of the left P3 segment. This accounts for the recent hypodense cortical-based ischemic infarction involving the left FAX MACHINE REPAIRER territory. 2. Limited CTA head due to venous contamination. No other suspicious significant vaso-occlusive disease of the anterior end posterior intracranial circulation. 3. 60% stenosis at the origin of the right carotid bulb due to noncalcified plaques. The remainder of the right cervical internal coronary is widely patent. 4. Widely patent left cervical internal carotid artery. 5. 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 6. Widely patent right vertebral artery in all 4 segments. 7. Normal aortic arch and origins of the great vessels. N.B. : The above Results were Read Back by Kei Manjarrez MD to Regino More DO, and understanding confirmed on 02/20/2024 12:27:59 (ET). Electronically Signed: Kei Manjarrez MD at 12:22 EDT , ADDENDUM: 02/20/24 1733 IMPRESSION: undefined Chest X-Ray 02/20/24 11:55 IMPRESSION: No radiographic evidence of acute cardiopulmonary disease. Electronically Signed: Kei Manjarrez MD at 12:22 EDT , Brain MRI 02/20/24 15:39 IMPRESSION: Mild atrophy and periventricular white matter ischemic changes. Acute ischemic infarction in the left occipital and parietal lobes.. Electronically Signed: Cj Beck MD at 19:09 EDT , ADDENDUM: 02/20/241948 IMPRESSION: Mild atrophy and periventricular white matter ischemic changes. Acute ischemic infarction in the left occipital and parietal lobes.. N.B. : The above Results were Read Back by Cj Beck MD to Alicia Prakash RN, and understanding confirmed on 02/20/2024 19:42:22 (ET). Electronically Signed: Cj Beck MD at 19:09 EDT , Physical Exam Narrative P GENERAL: cooperative HEENT: Atraumatic; normocephalic EYES; Anicteric, Normal Conjunctiva NECK; supple, normal thyroid, RESPIRATORY: Diminished to auscultation CARDIOVASCULAR: Regular S1 S2, GI: soft, normoactive bowel sounds, : No Renal angle tenderness; EXTREMITIES: No edema, no clubbing, MUSCULOSKELETAL: no muscle wasting NEURO: Awake; no lateralizing signs. SKIN: No Rash PSYCH; Flat affect Assessment & Plan Assessment/Plan (1) CVA (cerebral vascular accident): PLAN: Plan Patient is a 73-year-old gentleman sent to the emergency department by his ocean transportation intermediary with concern for possible stroke. Patient had apparently lost vision in his right eye. 1. Acute right eye visual loss secondary to acute CVA ? CTA obtained on admission?Partial thromboembolic occlusion of the left P2 segment in the left perimesencephalic cistern, report diminished contrast visualization of the left P3 segment. This accounts for the recent hypodense cortical-based ischemic infarction involving the left FAX MACHINE REPAIRER territory. Admitted to the progressive care unit for continuous telemetry monitoring as part of patient's management patient was started on statin therapy antiplatelet 2D echo ordered and consultation placed to teleneuro 2. Coronary artery disease -with previous history of STEMI with subsequent PCI 3. Hypertension -Permissive hypertension protocol being followed in view of patient's acute CVA 4. Class I obesity with BMI of 33.5 ? Complicating care weight loss advised 5. Dyslipidemia patient has been restarted on statin therapy 6.Diabetes mellitus type II ? By history currently not on any medication ordered hemoglobin A1c please on Accu-Cheks before meals and at bedtime with sliding scale coverage 7. DVT prophylaxis ? SC Lovenox Time spent in the patient's overall evaluation,decision-making process, review of diagnostic data, adjustment of management, discussion with other providers, nursing nursing and ancillary staff involved in patient's care documentation, 52 Minutes Charges/Coding Visit Charges Inpatient E&M: 85087 Subs Hosp L3
[2024-02-21 09:24] LABS: Hemoglobin A1c 8.9 % (3.8-5.6)
--- NOTE | 2024-02-21 09:36 | CASEMGMT ---
Per admission questions patient does not have a Healthcare Power of Hay Baler or a Healthcare Living Will and is not interested in documents. Ami Yarbrough CAFETERIA ASSISTANT MANAGER MARKETING COMMUNICATIONS
[2024-02-21] MEDS: Aspirin 81 MG TAB.CHEW PO (09:49)
--- NOTE | 2024-02-21 10:09 | CASEMGMT ---
SW completed a PHQ 9 with patient as he may have had a Stroke. Patient scored a 0 which indicates no depression. Patient denied any need for resources. Ami WILLIAM
[2024-02-21 12:00] VITALS: BP 154/90; PULSE 80; RESP 16; TEMP 36.8; O2SAT 94
[2024-02-21] MEDS: Clopidogrel Bisulfate 75 MG Tablet PO (12:18)
[2024-02-21 12:55] LABS: Bedside Glucose 213 mg/dL (74-106)
--- NOTE | 2024-02-21 14:25 | CASEMGMT ---
RN?CM?GRAIN TRIMMER?CM?to room to meet with patient for initial transition planning/care coordination?assessment.?RN?CM?introduced self and role at [facility].? Pt voices understanding and consents to?assessment?at this time.? Pt sitting up in chair in room in no distress at this time.?Sister and son @ bedside and pt agreeable to them being present during assessment. Pt is A/O at this time and answers all questions appropriately.?? Care providers, pharmacy, and demographics verified/updated at this time. PCP: Sarah GARAY. ALYSIA PEDROZA discussed [facility] for on-[facility] care and Rx's. Specialists: none Preferred Pharmacy: [facility] @ [place]. Pt was not taking any medications @ home prior to admission and initially stated was not going to take any medications @ dc from the hospital. ALYSIA PEDROZA spoke w/pt re: this and questions answered. Pt told ALYSIA PEDROZA he has come to the decision that he would be agreeable to taking medications at discharge. Dr Chen made aware and to room to discuss medications he would like to send him home on. Pt voiced understanding. Insurance: [facility], [facility] benefits. Pt and family had many questions at this time re: [facility] stay, his insurance, and [facility] and these were answered. Pt chose to have [facility] billed for this current hospital stay instead of [facility]. Prescription Benefit:?Pt discharging home on Eliquis. Made aware 30-day free trial offer card will be applied. Pt aware to f[facility] with [facility] for refills. Per Vaughn in pharmacy, pt's [facility] advantage plan does not have Rx benefits. Living Will/HPOA:?Pt does not currently have LW/HCPOA and declines info at this time.? Pt made aware that he can contact as an out-pt and make appt in the future if he decides he would like to talk with someone about this or would like to utilize [facility] social work for advanced directive completion. LNOK: 3 adult children. Son, Olman. Sister Living Arrangements: Lives alone in 2-story home w/2 steps to enter. [employer]SU. Independent w/ADL's and IADL's. Transportation:?pt drives. Family can assist, if needed. DME: ? Pt has a BP machine @ home. Pt does not use and AD to ambulate. He has a glucometer but states it has been about 5 yrs since using it. He is not certain it still works. Also made aware the strips for it would be . Pt interested in script for glucometer which was provided at this time. Also made aware to f[facility] with [facility] for [facility]eter, if desired, and made aware of there are OTC glucometer options. Pt denies need for other DME. HHC/SNF: No hx of either. Pt denies needs. Pt wishes to return home and states has no further concerns with going home at time of discharge.? PLAN:??Home Nicolasa BSN?RN?CM
[2024-02-21] MEDS: APIXABAN 5 MG TABLET PO (15:27)
--- NOTE | 2024-02-21 15:49 | PCM.DC.SUM ---
Providers Date of Admission: 02/20/24 Date of Discharge: 02/21/24 Primary Care Physician: Out of Town Doctor Consultations 02/20/24 15:39 Consult: Tele-Neurology Routine Consulting Provider: [facility] Reason for Consult: Acute Ischemic Stroke/TIA EMERGENT Consult: No MD Notified: Yes Date Notified: 02/20/24 Time Notified: 15:06 Method of Notification: Verbal Comments:: Dr. Manzano per transfer line Nursing Unit Staff Notify [facility] of Tele-Neurology Consult: Yes Reason For Visit: ACUTE CVA Diagnosis Discharge Diagnosis (1) CVA (cerebral vascular accident): Status: Acute Code(s): I63.9 - Cerebral infarction, unspecified Plan Patient is a 73-year-old gentleman sent to the emergency department by his product management analyst with concern for possible stroke. Patient had apparently lost vision in his right eye. 1. Acute right eye visual loss secondary to acute CVA ? CTA obtained on admission?Partial thromboembolic occlusion of the left P2 segment in the left perimesencephalic cistern, report diminished contrast visualization of the left P3 segment. This accounts for the recent hypodense cortical-based ischemic infarction involving the left COURT TRANSCRIBER territory. Admitted to the progressive care unit for continuous telemetry monitoring as part of patient's management patient was started on statin therapy antiplatelet 2D echo ordered and consultation placed to teleneuro. 2D echo obtained demonstrated The estimated ejection fraction is 45 %. Hypokinesis of the anterior, anteroseptal and apical dillard. The left atrium is mildly enlarged. Small apical thrombus noted. This was discussed with Dr. Huff with cardiology recommended for patient to be started on apixaban. With discontinuation of Plavix. 2. Coronary artery disease -with previous history of STEMI with subsequent PCI 3. Hypertension -Permissive hypertension protocol being followed in view of patient's acute CVA 4. Class I obesity with BMI of 33.5 ? Complicating care weight loss advised 5. Dyslipidemia - patient has been restarted on statin therapy 6.Diabetes mellitus type II ? By history currently not on any medication ordered hemoglobin A1c please on Accu-Cheks before meals and at bedtime with sliding scale coverage ? Prescription was written for metformin on discharge 7. DVT prophylaxis ? SC Lovenox Time spent in the patient's overall evaluation,decision-making process, review of diagnostic data, adjustment of management, discussion with other providers, nursing nursing and ancillary staff involved in patient's care documentation, 52 Minutes Medications at Discharge Home Medications apixaban 5 mg tablet (Eliquis) 5 mg PO BID #120 tabs 02/21/24 aspirin 81 mg chewable tablet 81 mg PO BREAKFAST #60 tabs 02/21/24 atorvastatin 80 mg tablet 80 mg PO QHS #60 tabs 02/21/24 losartan 50 mg tablet 50 mg PO DAILY #60 tabs 02/21/24 metformin 1,000 mg tablet 1,000 mg PO BID #120 tabs 02/21/24 metoprolol succinate 25 mg tablet,extended release 24 hr 25 mg PO DAILY #60 tabs 02/21/24 Physical Exam Narrative P GENERAL: cooperative HEENT: Atraumatic; normocephalic EYES; Anicteric, Normal Conjunctiva NECK; supple, normal thyroid, RESPIRATORY: Diminished to auscultation CARDIOVASCULAR: Regular S1 S2, GI: soft, normoactive bowel sounds, : No Renal angle tenderness; EXTREMITIES: No edema, no clubbing, MUSCULOSKELETAL: no muscle wasting NEURO: Awake; no lateralizing signs. SKIN: No Rash PSYCH; Flat affect Weight / BMI Weight Weight: 105.8 kg Body Mass Index (BMI) 33.5 ABG / Lab / Microbiology Data 02/21/24 06:04 02/21/24 06:04 Laboratory: Laboratory Results - last 24 hr 02/20/24 15:49: POC Glucose 160 H 02/20/24 21:40: POC Glucose 195 H 02/21/24 06:04: WBC 7.3, RBC 5.21, Hgb 15.1, Hct 45.6, MCV 87.5, MCH 29.0, MCHC 33.1, RDW Std Deviation 43.1, RDW Coeff of Shyam 13.4, Plt Count 247, MPV 9.7, Immature Gran % (Auto) 0.300, Neut % (Auto) 54.6, Lymph % (Auto) 30.2, [place] % (Auto) 11.6 H, Eos % (Auto) 2.6, Baso % (Auto) 0.7, Absolute Neuts (auto) 4.0, Absolute Lymphs (auto) 2.21, Nucleated RBC % 0, Sodium 137, Potassium 3.6, Chloride 105, Carbon Dioxide 25.0, Anion Gap 7, BUN 10, Creatinine 0.65 L, Estim Creat Clear Calc 101.67, Est GFR (MDRD) Af Amer 154, Est GFR (MDRD) Non-Af 127, BUN/Creatinine Ratio 15.3, Glucose 163 H, Hemoglobin A1c 8.9 H, Calcium 8.5, Total Bilirubin 0.30, AST 17, ALT 17, Alkaline Phosphatase 81, Total Protein 7.1, Albumin 3.1 L, Globulin 4.0, Albumin/Globulin Ratio 0.8 L, Triglycerides 149, Cholesterol 187, LDL Cholesterol 124, VLDL Cholesterol 30, HDL Cholesterol 33 L, TSH 4.02 H 02/21/24 06:24: POC Glucose 155 H 02/21/24 12:17: POC Glucose 213 H Radiography Diagnostic Testing: Radiology Impression Head/Neck CTA 02/20/24 10:40 IMPRESSION: 1. Partial thromboembolic occlusion of the left P2 segment in the left perimesencephalic cistern, report diminished contrast visualization of the left P3 segment. This accounts for the recent hypodense cortical-based ischemic infarction involving the left COURT TRANSCRIBER territory. 2. Limited CTA head due to venous contamination. No other suspicious significant vaso-occlusive disease of the anterior end posterior intracranial circulation. 3. 60% stenosis at the origin of the right carotid bulb due to noncalcified plaques. The remainder of the right cervical internal coronary is widely patent. 4. Widely patent left cervical internal carotid artery. 5. 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 6. Widely patent right vertebral artery in all 4 segments. 7. Normal aortic arch and origins of the great vessels. Electronically Signed: Kei Manjarrez MD at 12:22 EDT , ADDENDUM: 02/20/24 1234 IMPRESSION: 1. Partial thromboembolic occlusion of the left P2 segment in the left perimesencephalic cistern, report diminished contrast visualization of the left P3 segment. This accounts for the recent hypodense cortical-based ischemic infarction involving the left COURT TRANSCRIBER territory. 2. Limited CTA head due to venous contamination. No other suspicious significant vaso-occlusive disease of the anterior end posterior intracranial circulation. 3. 60% stenosis at the origin of the right carotid bulb due to noncalcified plaques. The remainder of the right cervical internal coronary is widely patent. 4. Widely patent left cervical internal carotid artery. 5. 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 6. Widely patent right vertebral artery in all 4 segments. 7. Normal aortic arch and origins of the great vessels. N.B. : The above Results were Read Back by Kei Manjarrez MD to Regino More DO, and understanding confirmed on 02/20/2024 12:27:59 (ET). Electronically Signed: Kei Manjarrez MD at 12:22 EDT , ADDENDUM: 02/20/24 1733 IMPRESSION: undefined Brain MRI 02/20/24 15:39 IMPRESSION: Mild atrophy and periventricular white matter ischemic changes. Acute ischemic infarction in the left occipital and parietal lobes.. Electronically Signed: Cj Beck MD at 19:09 EDT , ADDENDUM: 02/20/24 1949 IMPRESSION: Mild atrophy and periventricular white matter ischemic changes. Acute ischemic infarction in the left occipital and parietal lobes.. N.B. : The above Results were Read Back by Cj Beck MD to Alicia Prakash RN, and understanding confirmed on 02/20/2024 19:42:22 (ET). Electronically Signed: Cj Beck MD at 19:09 EDT , Echocardiogram 02/20/24 15:39 Interpretation Summary The estimated ejection fraction is 45 %. Hypokinesis of the anterior, anteroseptal and apical dillard. The left atrium is mildly enlarged. Small apical thrombus noted Ordering Physician: Holli Maurer Referring Physician: OTD Performed By: Fior Iglesias, WOLF, RVT D/C Instructions Discharge Diet: Low fat / Low cholesterol and 1800 Calorie Control Diet Discharge Activity: May Not Drive (Until cleared by primary care physician) Call your doctor if you observe: Fever of 101 or Higher, Shortness of breath, Fainting spells and Chest pain Meaningful Use Info Meaningful Use Meaningful Use Diagnoses (Choose all that apply): Ischemic CVA CVA Therapy Assessed for PT,OT and/or ST?: Yes Ischemic Stroke Antithrombotic order at d/c?: Yes Dx of Atrial fib/flutter?: No Anticoagulant at discharge?: Yes Statin Dosing Therapy Reference: STATIN DOSE THERAPY REFERENCE: * Patients > 75 years receive moderate or high dose statin therapy. * Patients 75 years or YOUNGER should receive HIGH intensity statin dose unless contraindicated. You will be required to document reason for non-treatment if statin daily dose does not meet guidelines. HIGH DOSE STATIN THERAPY DAILY Atorvastatin > than or = to 40 mg Rosuvastatin > than or = to 20 mg Amlodipine + Atorvastatin > than or = to 2.5/40 mg Ezetimibe + Simvastatin 10/80 mg Simvastatin 80mg Statins at discharge?: Yes If patient is 75 or younger, pt will be discharged on HIGH intensity statin.: Yes Primary Dx Acute Ischemic CVA?: Yes IV thrombolytic ordered during stay?: No Reason IV thrombolytic not ordered: Treatment not Indicated Discharge Plan Admission Admit Date/Time: 02/20/24 15:01 Attending Provider: Kael Chen Primary Care Provider: [facility] ,Out of Consulting Providers: Charles Martel; Suma De La Rosa; Carrie Smith; Yumiko Garcia; Lisbet Vaca; Mino Hou; Robyn Zuleta; Fidencio Jackson; Fercho Rosas; Martín Robbins; Tara Avila; Graham Jones; Catherine Zavala; Kamala Wheeler; Reno Francisco; Ahmet Gibson; Prosper Amezquita; Morales Manzano; Radha Allen; Alex Graham; Holli Maurer Discharge Orders/Prescriptions Prescriptions: New atorvastatin 80 mg Tablet 80 mg PO QHS Qty: 60 0RF aspirin 81 mg Tablet,Chewable 81 mg PO BREAKFAST Qty: 60 0RF Eliquis 5 mg Tablet 5 mg PO BID Qty: 120 0RF metformin 1,000 mg tablet 1,000 mg PO BID Qty: 120 0RF metoprolol succinate 25 mg tablet extended release 24 hr 25 mg PO DAILY Qty: 60 0RF losartan 50 mg tablet 50 mg PO DAILY Qty: 60 0RF Referrals / Follow Up: Julio C Murphy MD [Med Staff - Active Staff] - Within 1 Week Town Doctor,Out of [Primary Care Provider] - Within 2 Weeks Disposition Disposition (needs filled in before D/C Order can be placed): Home, Self Care Charges/Coding Visit Charges Inpatient E&M: 00033 Disch Hosp >30min
--- NOTE | 2024-02-21 15:55 | CASEMGMT ---
Discharge Planning A list of PCP providers consistent with the patient's preferred geographic region, medical needs, and insurance network was created from the [facility] website.? This list was provided to the patient. Magaly Wheat, Discharge Planning Asst.
[2024-02-21 16:46] VITALS: BP 175/88; PULSE 83; RESP 15; TEMP 36.6; O2SAT 96
[2024-02-21 16:48] VITALS: BMI 33.5
--- NOTE | 2024-02-21 23:19 | CON.PCM.NE_ITS ---
Assessment and Plan: Stroke Assessment/Plan CLARIBEL CALABRESE is a 73 M with a history of HTN HLD STEMI ETOH who presents for evaluation of R visual loss. Neurological examination shows NIH 2, for vision loss. Neuroimaging shows Left parieto-occipital stroke. TTE found to have apical thrombus. - Anti-Coag - Start Eliquis. - Occupational/ Physical therapy consults - DVT prophylaxis with SCDs and heparin SQ - Vascular risk factor modification. The following are the recommended guidelines: LDL Goal < 70 - INc Statin to 80 - SBP < 130 Smoking Cessation Diabetes Management A1C < 7 intermediate frame tender blood pressure control should achieve <130/80 mmHg. BP management should aim to achieve jail control in a reasonable amount of time, taking into consideration the individual patient's requirements and characteristics. Weight Management: Goal for BMI is 18.5 -24.9 kg/m2 Alcohol: No more than 2 drinks/day for men or 1 drink/day for non- women - Promote lifestyle modification: weight control, physical activity, moderation of alcohol intake, moderate sodium intake. Followup with PCP in 1-2 weeks, and in Neurology clinic in 6-12 weeks. Sleep Referral HPI Consult Data Date of Consult: 02/21/24 HPI Narrative HPI Narrative: CLARIBEL CALABRESE, is a 73 M who presents [facility] Medical History History of alcohol abuse Diabetes mellitus, type 2 Former tobacco use Obesity Ischemic cardiomyopathy Atherosclerotic heart disease of [place] coronary artery without angina pectoris Hyperlipidemia Alcohol abuse Hypertension ST elevation myocardial infarction (STEMI) of anterior wall Home Medications ?Medication ?Instructions ?Recorded ?Last Taken ?Type apixaban 5 mg tablet (Eliquis) 5 mg PO BID #120 tabs 02/21/24 Unknown Rx aspirin 81 mg chewable tablet 81 mg PO BREAKFAST #60 tabs 02/21/24 Unknown Rx atorvastatin 80 mg tablet 80 mg PO QHS #60 tabs 02/21/24 Unknown Rx losartan 50 mg tablet 50 mg PO DAILY #60 tabs 02/21/24 Unknown Rx metformin 1,000 mg tablet 1,000 mg PO BID #120 tabs 02/21/24 Unknown Rx metoprolol succinate 25 mg 25 mg PO DAILY #60 tabs 02/21/24 Unknown Rx tablet,extended release 24 hr Allergy/AdvReac Type Severity Reaction Status Date / Time No Known Allergies Allergy Verified 02/20/24 10:35 Family History Father Heart disease Hypertension Mother Heart disease Hypertension Surgical History History of coronary artery stent placement Social History (Updated 02/20/24 @ 15:[address] Holli Maurer MD) household members: none Smoking Status: Former smoker alcohol intake: current alcohol intake frequency: 0-2 drinks per day Alcohol type: beer details: Prior was heavy beer intake, down to maximum 2 beers daily x 6 years. substance use type: does not use caffeine: Yes Type: coffee Number of servings: 2 Vital Signs Vital Signs Vital Signs: 02/21/24 00:00 02/21/24 04:00 02/21/24 08:00 Temperature 97.9 F 97.6 F L 98.1 F Temperature Source Oral Oral Oral Pulse Rate 76 69 76 Respiratory Rate 17 16 14 Respiratory Effort Respiratory Depth Respiratory Pattern Blood Pressure 149/98 H 151/80 H 174/95 H Blood Pressure Mean 115 103 121 Blood Pressure Source Monitor Monitor Monitor Blood Pressure Position Supine Semi-Fowlers Semi-Fowlers Blood Pressure Location Right Arm Right Arm Left Arm Pulse Ox 98 98 95 Oxygen Delivery Method Room Air Room Air Room Air 02/21/24 08:00 02/21/24 08:22 02/21/24 12:00 Temperature 98.3 F Temperature Source Oral Pulse Rate 80 Respiratory Rate 16 Respiratory Effort Normal Non-Labored Respiratory Depth Normal Respiratory Pattern Normal Blood Pressure 154/90 H Blood Pressure Mean 111 Blood Pressure Source Monitor Blood Pressure Position Semi-Fowlers Blood Pressure Location Left Arm Pulse Ox 96 94 Oxygen Delivery Method Room Air Room Air Room Air 02/21/24 16:46 Temperature 98 F Temperature Source Oral Pulse Rate 83 Respiratory Rate 15 Respiratory Effort Respiratory Depth Respiratory Pattern Blood Pressure 175/88 H Blood Pressure Mean 117 Blood Pressure Source Monitor Blood Pressure Position Sitting Blood Pressure Location Left Arm Pulse Ox 96 Oxygen Delivery Method Room Air Weight Weight: 105.8 kg Body Mass Index (BMI) 33.5 EEG Results Procedure Details EEG Procedure Details: CLARIBEL CALABRESE is a 73 year old M with a past medical history of , who presents for evaluation of Electroencephalogram on DATE at TIME NIHSS NIHSS Nursing Documentation NIHSS Nursing Documentation: NIH Stroke Scale Start: 02/20/24 11:02 Freq: Status: Discharge Protocol: Activity Type Activity Date Activity User E-sign Co-sign Detail Recorded Client Recorded Date Recorded By Document 02/20/24 10:55 [place] .... 02/20/24 11:03 [place] 02/20/24 10:55 NIH Stroke Scale [NIHSS] A score of 0 is normal or asymptomatic . Total possible score is 42. Inpatient: RN or Physician to activate a stroke alert for onset of new stroke symptoms or with NIHSS increase >/= 3 points. Following change in neurological status, NIHSS will be performed per physician order or more frequently PRN. -1a. Level of Consciousness Alert; keenly responsive -1b. LOC Questions Answers BOTH questions correctly. -1c. LOC Commands Performs both tasks correctly . -2. Best Gaze Normal -3. Visual Partial hemianopia -4. Facial Palsy Normal symmetrical movements -5a. Left Arm No drift; arm holds 90 (or 45 ) degrees for full 10 seconds -5b. Right Arm No drift; arm holds 90 (or 45 ) degrees for full 10 seconds -6a. Left Leg No drift; leg holds 30-degree position for full 5 seconds -6b. Right Leg No drift; leg holds 30-degree position for full 5 seconds -7. Limb Ataxia Absent -8. Sensory Normal; no sensory loss -9. Best Language No aphasia; normal -10. Dysarthria Normal -11. Extinction and Inattention No abnormality -Total 1 Query Text:A score of 0 is normal or asymptomatic. Total possible score is 42 . ED: Notify Physician for NIHSS increase by > / = 3 points. Inpatient: RN or Physician to activate a stroke alert for NIHSS increase of > / = 3 points. NIHSS: Ischemic Stroke/TIA Start: 02/20/24 15:39 Text: For PCU Patients: NIH and Neuro Check every 4 Status: Discharge hours, PRN and with change in RN caregiver. Freq: [id number] Protocol: Activity Type Activity Date Activity User E-sign Co-sign Detail Recorded Client Recorded Date Recorded By Document 02/21/24 15:10 DS dd 02/21/24 15:51 DS 02/21/24 15:10 -1a. Level of Consciousness Alert; keenly responsive -1b. LOC Questions Answers BOTH questions correctly. -1c. LOC Commands Performs both tasks correctly . -2. Best Gaze Partial gaze palsy; -3. Visual Partial hemianopia -4. Facial Palsy Normal symmetrical movements -5a. Left Arm No drift; arm holds 90 (or 45 ) degrees for full 10 seconds -5b. Right Arm No drift; arm holds 90 (or 45 ) degrees for full 10 seconds -6a. Left Leg No drift; leg holds 30-degree position for full 5 seconds -6b. Right Leg No drift; leg holds 30-degree position for full 5 seconds -7. Limb Ataxia Absent -8. Sensory Normal; no sensory loss -9. Best Language No aphasia; normal -10. Dysarthria Normal -11. Extinction and Inattention No abnormality -Total 2 Query Text:A score of 0 is normal or asymptomatic. Total possible score is 42 . ED: Notify Physician for NIHSS increase by > / = 3 points. Inpatient: RN or Physician to activate a stroke alert for NIHSS increase of > / = 3 points. Coma Scale [Assess] -Eye Opening Spontaneous -Motor Obeys Commands -Verbal Oriented [Total] -Coma Scale Total 15 Physical Exam Eyes Visual Field: peripheral vision loss and right visual field cut Lab / Micro Data 02/21/24 06:04 02/21/24 06:04 Labs: Laboratory Results - last 24 hr 02/21/24 06:04: WBC 7.3, RBC 5.21, Hgb 15.1, Hct 45.6, MCV 87.5, MCH 29.0, MCHC 33.1, RDW Std Deviation 43.1, RDW Coeff of Shyam 13.4, Plt Count 247, MPV 9.7, Immature Gran % (Auto) 0.300, Neut % (Auto) 54.6, Lymph % (Auto) 30.2, [place] % (Auto) 11.6 H, Eos % (Auto) 2.6, Baso % (Auto) 0.7, Absolute Neuts (auto) 4.0, Absolute Lymphs (auto) 2.21, Nucleated RBC % 0, Sodium 137, Potassium 3.6, Chloride 105, Carbon Dioxide 25.0, Anion Gap 7, BUN 10, Creatinine 0.65 L, Estim Creat Clear Calc 101.67, Est GFR (MDRD) Af Amer 154, Est GFR (MDRD) Non-Af 127, BUN/Creatinine Ratio 15.3, Glucose 163 H, Hemoglobin A1c 8.9 H, Calcium 8.5, Total Bilirubin 0.30, AST 17, ALT 17, Alkaline Phosphatase 81, Total Protein 7.1, Albumin 3.1 L, Globulin 4.0, Albumin/Globulin Ratio 0.8 L, Triglycerides 149, Cholesterol 187, LDL Cholesterol 124, VLDL Cholesterol 30, HDL Cholesterol 33 L, TSH 4.02 H 02/21/24 06:24: POC Glucose 155 H 02/21/24 12:17: POC Glucose 213 H Imaging Radiology Impression Echocardiogram 02/20/24 15:39 Interpretation Summary The estimated ejection fraction is 45 %. Hypokinesis of the anterior, anteroseptal and apical dillard. The left atrium is mildly enlarged. Small apical thrombus noted Ordering Physician: Holli Maurer Referring Physician: OTD Performed By: Fior Iglesias, WOLF, RVT
== END 2024-02-21 16:44 | disposition home or self-care (01) | DRG 66 ==
LOC: ED 11:06 → PCU 15:41
PROVIDERS: Admitting Provider Family Medicine; Emergency Provider Emergency Medicine; Visit Provider Internal Medicine
DX: I63.532 Cerebral infarction due to unspecified occlusion or stenosis of left posterior cerebral artery (principal); H53.461 Homonymous bilateral field defects, right side; E11.9 Type 2 diabetes mellitus without complications; I10 Essential (primary) hypertension; I25.10 Atherosclerotic heart disease of native coronary artery without angina pectoris; E78.5 Hyperlipidemia, unspecified; I25.2 Old myocardial infarction; I25.5 Ischemic cardiomyopathy; E66.9 Obesity, unspecified; I51.3 Intracardiac thrombosis, not elsewhere classified; R29.702 NIHSS score 2; Z66 Do not resuscitate; Z68.33 Body mass index [BMI] 33.0-33.9, adult; Z95.5 Presence of coronary angioplasty implant and graft; Z91.148 Patient's other noncompliance with medication regimen for other reason; Z79.84 Long term (current) use of oral hypoglycemic drugs; Z87.891 Personal history of nicotine dependence
CPT/HCPCS: 36415; 70496; 70498; 70551; 71045; 80048; 80053; 80061; 82962; 83036; 83735; 84443; 84484; 85025; 85610; 85730; 92610; 93005; 93306; 94762; 97161; 97166; 99285; J7030; Q9957; Q9967; A4216; C8929